=== PATIENT | male | born 1955 | race Caucasian/White ===

== ENCOUNTER 2020-07-09 05:12 | Day surgery (SDC) | payer MEDICARE, MEDICAID ==
[2020-07-09] MEDS ORDERED: Midazolam 1 MG/ML 2 ML SDV IV ONE ×3 (05:13→06:39)
[2020-07-09] MEDS ORDERED: fentaNYL 100 MCG/2 ML SDV IV ONE ×3 (05:13→06:38)
[2020-07-09] MEDS ORDERED: fentaNYL 100 MCG/2 ML SDV ONE (05:16)
[2020-07-09] MEDS ORDERED: Midazolam 1 MG/ML 2 ML SDV ONE (05:16)
[2020-07-09] MEDS ORDERED: Sodium Chloride 0.9% 10 ML Syringe FLUSH PRN (06:00)
[2020-07-09] MEDS ORDERED: Dextrose 5%-0.45% NaCl 1,000 ML IV SCH (06:00)
[2020-07-09 11:26] VITALS: BP 120/79; PULSE 64
--- NOTE | 2020-07-09 11:42 | OR ---
DATE: 07/09/2020 PROCEDURES: Esophagogastroduodenoscopy and multiple pinch biopsies. INSTRUMENT USED: [id number] Olympus video panendoscope. PREMEDICATIONS: No oral or topical anesthesia used. Fentanyl 100 mcg intravenous, Versed 2 mg intravenous, and nasal O2 cannula. The procedure was done under pulse oximetry, BP recording, and engine monitor. INDICATION: The patient with unexplained iron deficiency anemia. Esophagogastroduodenoscopy is performed for detection of any active erosive lesions, Albert esophagus and/or malignancy also under consideration, H pylori status to be determined, small bowel biopsies to be obtained for celiac disease if indicated, endoscopic hemostasis therapy if needed. PROCEDURE IN DETAIL: The scope was passed with ease. Adequate visualization of the esophagus was made from proximal to distal areas. No upper esophageal lesions were identified. No distal esophageal stricture. No uphill or downhill esophageal varices. No Liseth-Asif tear. No evidence of erosive esophagitis by Trinidad criteria. No esophageal polyp or tumor mass identified. Z-line was seen at around 40 cm distal to the oral verge. No proximal gastric varices noted. Gastric fundus examination by retroflexion showed no polypoid lesions. No gastric ulcer, malignant mass, or vascular ectasia identified. Duodenal bulb showed no ulcer. Visualized second part of the duodenum was unremarkable. Multiple pinch biopsies, 4 in number, were taken from different areas of the second part of the duodenum and tissues were also obtained from the duodenal bulb at 9 and 12 o'clock positions and sent for any histopathologic evidence of celiac disease. Multiple pinch biopsies were also taken from the gastric antrum and proximal body and sent for PyloriTek test for H pylori and histopathology. No bleeding was noted from any of the visualized areas at the completion of examination. Photographs were taken of the duodenal bulb, gastric antrum, fundus, and distal esophagus. IMPRESSION: Normal study. The patient tolerated the procedure well. [facility] /[id number]
== END 2020-07-09 08:56 | disposition home or self-care (01) ==
LOC: DL.ENDO 05:12
PROVIDERS: ATTEND Internal Medicine Gastroenterology
DX: D50.9 Iron deficiency anemia, unspecified (principal); F17.210 Nicotine dependence, cigarettes, uncomplicated; I25.10 Atherosclerotic heart disease of native coronary artery without angina pectoris; I48.0 Paroxysmal atrial fibrillation; N40.0 Benign prostatic hyperplasia without lower urinary tract symptoms; E78.00 Pure hypercholesterolemia, unspecified; I10 Essential (primary) hypertension; E03.9 Hypothyroidism, unspecified; Z95.5 Presence of coronary angioplasty implant and graft; Z86.010 Personal history of colon polyps
CPT/HCPCS: 87077; 88305; J2250; J3010; J7042

== ENCOUNTER 2020-07-12 05:28 | Day surgery (SDC) | payer MEDICARE, MEDICAID ==
[2020-07-12] MEDS ORDERED: Midazolam 1 MG/ML 2 ML SDV IV ONE ×7 (05:29→07:23)
[2020-07-12] MEDS ORDERED: fentaNYL 100 MCG/2 ML SDV IV ONE ×3 (05:29→07:11)
[2020-07-12] MEDS ORDERED: Sodium Chloride 0.9% 10 ML Syringe FLUSH PRN (06:00)
[2020-07-12] MEDS ORDERED: Dextrose 5%-0.45% NaCl 1,000 ML IV SCH (06:00)
[2020-07-12] MEDS ORDERED: fentaNYL 100 MCG/2 ML SDV ONE (06:15)
[2020-07-12] MEDS ORDERED: Midazolam 1 MG/ML 2 ML SDV ONE (06:15)
[2020-07-12 10:46] VITALS: BP 136/75; PULSE 70
--- NOTE | 2020-07-12 13:10 | OR ---
DATE: 07/12/2020 PROCEDURES: Total colonoscopy, NBI, and multiple pinch biopsies. INSTRUMENT USED: [id number] Olympus video colonoscope. PREMEDICATIONS: Fentanyl 100 mcg intravenous, Versed 3 mg intravenous, nasal O2 cannula. The procedure was done under pulse oximetry, BP recording, and desk monitor. INDICATION: The patient with iron deficiency anemia. Colonoscopic examination is done for detection of any polypoid lesions and removal, endoscopic hemostasis therapy if needed. DESCRIPTION OF PROCEDURE: Initial rectal exam showed large external hemorrhoidal tags. Rigid anoscopy showed small internal hemorrhoids without bleeding from them. The colonoscope was passed with ease up to the ileocecal area. The colon was found to be tortuous and redundant. Photographs were taken of the normal-appearing cecum identified by landmarks of appendiceal orifice and double-bulged ileocecal folds. No bleeding was noted from any of the visualized areas at the commencement of the examination. The bowel preparation was found to be adequate, Denver scale 2 in all the regions, total score 6. No stricture. No vascular ectasia. No large isolated ulcerations seen. No evidence of diffuse inflammatory bowel disease in the form of friability, contact bleeding, or ulcerations. Probing the proximal sides of folds and flexures using adequate distention and clearing up the stool material, withdrawal of the scope was made. In the proximal descending colon, more than 1 cm sized sessile polyp was noted, NBI views were obtained, photographs were taken, couple of superficial biopsies were taken and sent for histopathology. No bleeding was noted from any of the visualized areas at the completion of examination. IMPRESSION: 1. External and internal hemorrhoids. 2. Colonic polyp. The patient tolerated the procedure well. [facility] /[id number]
== END 2020-07-12 10:10 | disposition home or self-care (01) ==
LOC: DL.ENDO 05:28
PROVIDERS: ATTEND Internal Medicine Gastroenterology
DX: D12.4 Benign neoplasm of descending colon (principal); D50.9 Iron deficiency anemia, unspecified; K64.8 Other hemorrhoids; K64.4 Residual hemorrhoidal skin tags; I25.10 Atherosclerotic heart disease of native coronary artery without angina pectoris; Z95.5 Presence of coronary angioplasty implant and graft; E78.00 Pure hypercholesterolemia, unspecified; I10 Essential (primary) hypertension; E03.9 Hypothyroidism, unspecified; F17.210 Nicotine dependence, cigarettes, uncomplicated
CPT/HCPCS: 88305; J2250; J3010; J7042

== ENCOUNTER 2021-02-12 07:37 | Observation (INO) | payer MEDICARE, MEDICAID ==
[2021-02-12] MEDS ORDERED: Diltiazem 25 MG/5 ML SDV IVPUSH ONE (07:55)
--- NOTE | 2021-02-12 08:07 | EDM.PDOC ---
ED HPI GENERAL MEDICAL PROBLEM - General Stated Complaint: HISTORY OF HEART ISSUES / SAYS WEIRD HEARTBEAT Time Seen by Provider: 02/12/21 07:55 Source of Information: Reports: Patient History Limitations: Reports: No Limitations - History of Present Illness INITIAL COMMENTS - FREE TEXT/NARRATIVE: This 65 yo male patient reports to the ED due to feeling irregular heartbeats. The patient reports he has has similar episodes in the past couple of weeks, but today his symptoms have not gone away. The patient reports he took his medications this morning at about 0500. The patient also noticed an elevated heart rate on his home pulse oximeter. The patient has a history of A. Fib, cardiac stents, CAD and left ventricular dysfunction. The patient denies any chest pain or shortness of breath at this time. Onset: Today Duration: Hour(s):, Constant Location: Reports: Chest Quality: Reports: Other Severity: Moderate Improves with: Reports: None Worsens with: Reports: None Context: Reports: Other Associated Symptoms: Reports: Other (Heart palpitations) - Related Data Allergies Allergy/AdvReac Type Severity Reaction Status Date / Time No Known Allergies Allergy Verified 07/12/20 05:46 Home Meds: Home Meds Aspirin [Adult Low Dose Aspirin EC] 81 mg PO DAILY 08/29/14 [History] Docusate Sodium [Colace] 100 mg PO ASDIRECTED 08/29/14 [History] Levothyroxine [Synthroid] 50 mcg PO DAILY 08/29/14 [History] Metoprolol Succinate [Toprol XL] 25 mg PO DAILY 08/29/14 [History] Multivitamin [Multivitamins] 1 tab PO DAILY 08/29/14 [History] Omeprazole 20 mg PO DAILY 08/29/14 [History] Tamsulosin [Flomax] 0.4 mg PO DAILY 08/29/14 [History] atorvaSTATin [Lipitor] 80 mg PO DAILY 08/29/14 [History] QUEtiapine [SEROquel XR] 800 mg PO BEDTIME 01/11/15 [History] ARIPiprazole [Abilify] 5 mg PO DAILY 06/21/20 [History] Rivaroxaban [Xarelto] 20 mg PO DAILY 06/21/20 [History] Zolpidem [Ambien] 5 mg PO BEDTIME 06/21/20 [History] traZODone HCl [Trazodone HCl] 100 mg PO BEDTIME 06/21/20 [History] Ferrous Fumarate [Ferrocite] 324 mg PO ASDIRECTED 02/12/21 [History] Isosorbide Mononitrate [Imdur] 30 mg PO DAILY 02/12/21 [History] Melatonin 10 mg PO ASDIRECTED 02/12/21 [History] Past Medical History HEENT History: Reports: Hard of Hearing, Impaired Vision Other HEENT History: dental infection, wears glasses. states hard of hearing Cardiovascular History: Reports: Afib, CAD, Cardiomyopathy, High Cholesterol, Hypertension, NM, Stents Other Cardiovascular History: left ventricular dysfunction Respiratory History: Reports: COPD Gastrointestinal History: Reports: Colon Polyp, GERD, Other (See Below) Other Gastrointestinal History: colonic polyp HYPERPLASTIC Genitourinary History: Reports: BPH, Prostate Disorder Musculoskeletal History: Reports: None Neurological History: Reports: Concussion, Other (See Below) Other Neuro History: cervical lymphadenopathy. schizophrenia Psychiatric History: Reports: Bipolar, Mood Swings, Psychosis, Schizophrenia Endocrine/Metabolic History: Reports: Hypothyroidism Hematologic History: Reports: Anemia, Iron Deficiency Immunologic History: Reports: None Oncologic (Cancer) History: Reports: None Dermatologic History: Reports: None - Infectious Disease History Infectious Disease History: Reports: Chicken Pox, Measles - Past Surgical History Head Surgeries/Procedures: Reports: None HEENT Surgical History: Reports: None Cardiovascular Surgical History: Reports: Carotid Stents, Coronary Artery Stent Respiratory Surgical History: Reports: None GI Surgical History: Reports: Colonoscopy, EGD, Polypectomy Male Surgical History: Reports: None Neurological Surgical History: Reports: None Musculoskeletal Surgical History: Reports: None Social & Family History - Family History Family Medical History: Unobtainable - Caffeine Use Caffeine Use: Reports: Coffee Caffeine Use Comment: 12 CUPS DAILY - Living Situation & Occupation Living situation: Reports: Single Occupation: Disabled ED ROS GENERAL - Review of Systems Review Of Systems: Comprehensive ROS is negative, except as noted in HPI. ED EXAM, GENERAL - Physical Exam Exam: See Below Exam Limited By: No Limitations General Appearance: Alert, WD/WN, Mild Distress Eye Exam: Bilateral Eye: EOMI, Normal Inspection, PERRL Ears: Normal External Exam, Normal Canal, Hearing Grossly Normal, Normal TMs Nose: Normal Inspection, Normal Mucosa, No Blood Throat/Mouth: Normal Inspection Head: Atraumatic, Normocephalic Neck: Normal Inspection, Supple, Non-Tender, Full Range of Motion Respiratory/Chest: Decreased Breath Sounds, Crackles (diffuse) Cardiovascular: No Edema, No Gallop, No JVD, No Murmur, No Rub, Tachycardia, Irregularly Irregular GI/Abdominal: Normal Bowel Sounds, Soft, Non-Tender, No Organomegaly, No Distention, No Abnormal Bruit, No Mass (Male) Exam: Deferred Rectal (Males) Exam: Deferred Back Exam: Normal Inspection, Full Range of Motion, NT Extremities: Normal Inspection, Normal Range of Motion, Non-Tender, Normal Capillary Refill, No Pedal Edema Neurological: Alert, Oriented, CN II-XII Intact, Normal Cognition, Normal Gait, Normal Reflexes, No Motor/Sensory Deficits Psychiatric: Normal Affect, Normal Mood Skin Exam: Warm, Dry, Intact, Normal Color, No Rash Lymphatic: No Adenopathy #1 Interpretation EKG Date: 02/12/21 Time: 07:48 Rhythm: A-Fib Rate (Beats/Min): 123 [place]ides: Normal P-Wave: Absent QRS: Wide Comparison: No Change Course - Vital Signs Last Recorded V/S: Last Vital Signs Temp 98.1 F 02/12/21 07:56 Pulse 138 H 02/12/21 07:56 Resp 18 02/12/21 07:56 BP 136/103 H 02/12/21 07:56 Pulse Ox 100 02/12/21 07:56 Orthostatic Blood Pressure [ 116/78 Standing] Orthostatic Blood Pressure [ 117/81 Sitting] Orthostatic Blood Pressure [ 110/72 Supine] - Orders/Labs/Meds Orders: Active Orders 24 hr Category Date Time Status CORONAVIRUS COVID-19 RAFAEL [MOLEC] Stat Lab 02/12/21 10:32 Received CULTURE BLOOD [BC] Stat Lab 02/12/21 07:45 Ordered Metoprolol Tartrate [Lopressor] Med 02/12/21 10:36 Once 25 mg PO ONETIME ONE Labs: Laboratory Tests 02/12/21 02/12/21 02/12/21 Range/Units 07:55 07:55 07:55 WBC 5.7 (5.0-10.0) 10^3/uL RBC 3.90 L (4.6-6.2) 10^6/uL Hgb 12.4 L D (14.0-18.0) g/dL Hct 38.4 L (40.0-54.0) % MCV 98.5 D (80-100) fL MCH 31.8 (27.0-34.0) pg MCHC 32.3 L (33.0-35.0) g/dL Plt Count 201 (150-450) 10^3/uL Neut % (Auto) 75.4 H (42.2-75.2) % Lymph % (Auto) 15.6 L (20.5-50.1) % Stanton % (Auto) 8.1 H (2-8) % Eos % (Auto) 0.5 L (1.0-3.0) % Baso % (Auto) 0.4 (0.0-1.0) % Sodium 136 (136-145) mmol/L Potassium 4.1 (3.5-5.1) mmol/L Chloride 99 (98-107) mmol/L Carbon Dioxide 28 (21-32) mmol/L Anion Gap 13.1 H (7-13) mEq/L BUN 5 L (7-18) mg/dL Creatinine 0.97 (0.70-1.30) mg/dL Est Cr Clr Drug Dosing 71.49 mL/min Estimated GFR (MDRD) > 60 BUN/Creatinine Ratio 5.2 (No establ ref range) Glucose 176 H (70-99) mg/dL Lactic Acid 2.0 (0.4-2.0) mmol/L Calcium 8.4 L (8.5-10.1) mg/dL Total Bilirubin 0.2 (0.2-1.0) mg/dL AST 14 L (15-37) U/L ALT 43 (16-63) U/L Alkaline Phosphatase 80 (46-116) U/L Troponin I High Sens 13 (<=76) pg/mL Total Protein 5.8 L (6.4-8.2) g/dL Albumin 3.1 L (3.4-5.0) g/dL Globulin 2.7 Albumin/Globulin Ratio 1.15 Urine Color (YELLOW) Urine Appearance (CLEAR) Urine pH (5.0-9.0) Ur Specific [place] (1.005-1.030) Urine Protein (NEGATIVE) Urine Glucose (UA) (NEGATIVE) Urine Ketones (NEGATIVE) Urine Occult Blood (NEGATIVE) Urine Nitrite (NEGATIVE) Urine Bilirubin (NEGATIVE) Urine Urobilinogen (0.2-1.0) mg/dL Ur Leukocyte Esterase (NEGATIVE) 02/12/21 Range/Units 08:47 WBC (5.0-10.0) 10^3/uL RBC (4.6-6.2) 10^6/uL Hgb (14.0-18.0) g/dL Hct (40.0-54.0) % MCV (80-100) fL MCH (27.0-34.0) pg MCHC (33.0-35.0) g/dL Plt Count (150-450) 10^3/uL Neut % (Auto) (42.2-75.2) % Lymph % (Auto) (20.5-50.1) % Stanton % (Auto) (2-8) % Eos % (Auto) (1.0-3.0) % Baso % (Auto) (0.0-1.0) % Sodium (136-145) mmol/L Potassium (3.5-5.1) mmol/L Chloride (98-107) mmol/L Carbon Dioxide (21-32) mmol/L Anion Gap (7-13) mEq/L BUN (7-18) mg/dL Creatinine (0.70-1.30) mg/dL Est Cr Clr Drug Dosing mL/min Estimated GFR (MDRD) BUN/Creatinine Ratio (No establ ref range) Glucose (70-99) mg/dL Lactic Acid (0.4-2.0) mmol/L Calcium (8.5-10.1) mg/dL Total Bilirubin (0.2-1.0) mg/dL AST (15-37) U/L ALT (16-63) U/L Alkaline Phosphatase (46-116) U/L Troponin I High Sens (<=76) pg/mL Total Protein (6.4-8.2) g/dL Albumin (3.4-5.0) g/dL Globulin Albumin/Globulin Ratio Urine Color Yellow (YELLOW) Urine Appearance Clear (CLEAR) Urine pH 7.5 (5.0-9.0) Ur Specific [place] 1.020 (1.005-1.030) Urine Protein Negative (NEGATIVE) Urine Glucose (UA) Negative (NEGATIVE) Urine Ketones Negative (NEGATIVE) Urine Occult Blood Negative (NEGATIVE) Urine Nitrite Negative (NEGATIVE) Urine Bilirubin Negative (NEGATIVE) Urine Urobilinogen 0.2 (0.2-1.0) mg/dL Ur Leukocyte Esterase Negative (NEGATIVE) Meds: Medications Discontinued Medications Generic Name Dose Route Start Last Admin Trade Name Freq PRN Reason Stop Dose Admin Diltiazem HCl 20 mg 02/12/21 07:55 02/12/21 08:01 Diltiazem 25 Mg/5 Ml Sdv IVPUSH 02/12/21 07:56 20 mg ONETIME ONE Administration Departure - Departure Time of Disposition: 10:39 Disposition: Home, Self-Care 01 Condition: Fair Clinical Impression: Palpitations, Atrial fibrillation with RVR Care Plan Goals: Discussed the patient's history, examination and treatments with Dr. Moreno. Dr. Moreno accepted the patient for continued evaluation and further management as an observation patient at [facility]. Sepsis Event Note (ED) - Evaluation Sepsis Screening Result: No Definite Risk - Focused Exam Vital Signs: Vital Signs Temp Pulse Resp BP Pulse Ox 02/12/21 07:56 98.1 F 138 H 18 136/103 H 100 - My Orders Last 24 Hours: My Active Orders 02/12/21 07:45 CULTURE BLOOD [BC] Stat 02/12/21 10:32 CORONAVIRUS COVID-19 RAFAEL [MOLEC] Stat 02/12/21 10:36 Metoprolol Tartrate [Lopressor] 25 mg PO ONETIME ONE - Assessment/Plan Last 24 Hours: My Active Orders 02/12/21 07:45 CULTURE BLOOD [BC] Stat 02/12/21 10:32 CORONAVIRUS COVID-19 RAFAEL [MOLEC] Stat 02/12/21 10:36 Metoprolol Tartrate [Lopressor] 25 mg PO ONETIME ONE
[2021-02-12 08:25] LABS: ANION GAP 13.1 mEq/L (7-13); CHLORIDE,CL 99 mmol/L (98-107); SODIUM,NA 136 mmol/L (136-145)
--- NOTE | 2021-02-12 10:32 | CR ---
PROCEDURE INFORMATION: Exam: XR Chest Exam date and time: 02/12/2021 8:15 AM Age: 65 years old Clinical indication: Other: Palpitations TECHNIQUE: Imaging protocol: XR of the chest. Views: 1 view. COMPARISON: CR Chest 1V Frontal 01/29/2018 10:19 AM FINDINGS: Lungs: Unremarkable. No consolidation. Pleural spaces: Unremarkable. No pleural effusion. No pneumothorax. Heart/Mediastinum: Unremarkable. No cardiomegaly. Bones/joints: Unremarkable. IMPRESSION: No acute findings.
[2021-02-12] MEDS ORDERED: Metoprolol Tartrate 25 MG Tab PO ONE (10:36)
[2021-02-12] MEDS ORDERED: Ondansetron 4 MG Tab.DIS PO PRN (11:35)
[2021-02-12] MEDS ORDERED: Docusate Sodium 100 MG Cap PO PRN (11:35)
[2021-02-12] MEDS ORDERED: oxyCODONE 5 MG Tab PO PRN (11:35)
[2021-02-12] MEDS ORDERED: Acetaminophen 325 MG Tab PO PRN (11:35)
[2021-02-12] MEDS ORDERED: Temazepam 15 MG Cap PO PRN (11:35)
--- NOTE | 2021-02-12 12:10 | PCM.HP ---
H&P History of Present Illness - General Date of Service: 02/12/21 Admit Problem/Dx: Admission Diagnosis/Problem Admission Diagnosis/Problem Atrial fibrillation with rapid ventricular response Source of Information: Patient, Provider - History of Present Illness Initial Comments - Free Text/Narative: 65 yo with h/o hypothyroidism, cad, Afib has been on metoprolol, xarelto developed palpitation on 02/12 AM no associated loc, no cp checked his oxymeter, it showed hr 120-130s, sat 95% came to ER noted to have rapid afib with hr 120-140s given cardizem iv 20 mg hr improved to 90s but with little activity HR returned to 120s no cough, no new meds, no fever, no pain - Related Data Allergies/Adverse Reactions: Allergies Allergy/AdvReac Type Severity Reaction Status Date / Time No Known Allergies Allergy Verified 02/12/21 11:23 Home Medications: Home Meds Aspirin [Adult Low Dose Aspirin EC] 81 mg PO DAILY 08/29/14 [History] Docusate Sodium [Colace] 200 mg PO ASDIRECTED 08/29/14 [History] Levothyroxine [Synthroid] 50 mcg PO DAILY 08/29/14 [History] Metoprolol Succinate [Toprol XL] 50 mg PO DAILY 08/29/14 [History] Multivitamin [Multivitamins] 1 tab PO DAILY 08/29/14 [History] Omeprazole 20 mg PO DAILY 08/29/14 [History] Tamsulosin [Flomax] 0.4 mg PO DAILY 08/29/14 [History] atorvaSTATin [Lipitor] 80 mg PO DAILY 08/29/14 [History] QUEtiapine [SEROquel XR] 800 mg PO BEDTIME 01/11/15 [History] ARIPiprazole [Abilify] 5 mg PO DAILY 06/21/20 [History] Rivaroxaban [Xarelto] 20 mg PO DAILY 06/21/20 [History] Zolpidem [Ambien] 5 mg PO BEDTIME 06/21/20 [History] traZODone HCl [Trazodone HCl] 100 mg PO BEDTIME 06/21/20 [History] Ferrous Fumarate [Ferrocite] 106 mg PO ASDIRECTED 02/12/21 [History] Isosorbide Mononitrate [Imdur] 30 mg PO DAILY 02/12/21 [History] Melatonin 10 mg PO ASDIRECTED 02/12/21 [History] Past Medical History HEENT History: Reports: Hard of Hearing, Impaired Vision Other HEENT History: dental infection, wears glasses. states hard of hearing Cardiovascular History: Reports: Afib, CAD, Cardiomyopathy, High Cholesterol, Hypertension, OR, Stents Other Cardiovascular History: left ventricular dysfunction Respiratory History: Reports: COPD Gastrointestinal History: Reports: Colon Polyp, GERD, Other (See Below) Other Gastrointestinal History: colonic polyp HYPERPLASTIC Genitourinary History: Reports: BPH, Prostate Disorder Musculoskeletal History: Reports: None Neurological History: Reports: Concussion, Other (See Below) Other Neuro History: cervical lymphadenopathy. schizophrenia Psychiatric History: Reports: Bipolar, Mood Swings, Psychosis, Schizophrenia Endocrine/Metabolic History: Reports: Hypothyroidism, Obesity/BMI 30+ Hematologic History: Reports: Anemia, Iron Deficiency Immunologic History: Reports: None Oncologic (Cancer) History: Reports: None Dermatologic History: Reports: None - Infectious Disease History Infectious Disease History: Reports: Chicken Pox, Measles - Past Surgical History Head Surgeries/Procedures: Reports: None HEENT Surgical History: Reports: None Cardiovascular Surgical History: Reports: Carotid Stents, Coronary Artery Stent Respiratory Surgical History: Reports: None GI Surgical History: Reports: Colonoscopy, EGD, Polypectomy Male Surgical History: Reports: None Neurological Surgical History: Reports: None Musculoskeletal Surgical History: Reports: None Social & Family History - Family History Family Medical History: Unobtainable - Tobacco Use Tobacco Use Status *Q: Current Every Day Tobacco User Years of Tobacco use: 55 Packs/Tins Daily: 1 - Caffeine Use Caffeine Use: Reports: Coffee Caffeine Use Comment: 12 CUPS DAILY - Recreational Drug Use Recreational Drug Use: No - Living Situation & Occupation Living situation: Reports: Single Occupation: Disabled H&P Review of Systems - Review of Systems: Review Of Systems: See Below General: Reports: Chills. Denies: Fever, Malaise Pulmonary: Denies: Shortness of Breath Cardiovascular: Reports: Palpitations, Edema Gastrointestinal: Denies: Abdominal Pain Neurological: Denies: Confusion Exam - Exam Exam: See Below - Vital Signs Vital Signs: Last Vital Signs Temp 99.4 F 02/12/21 11:35 Pulse 98 02/12/21 11:35 Resp 20 02/12/21 11:35 BP 119/72 02/12/21 11:35 Pulse Ox 96 02/12/21 11:35 Orthostatic Blood Pressure [ 116/78 Standing] Orthostatic Blood Pressure [ 117/81 Sitting] Orthostatic Blood Pressure [ 110/72 Supine] Weight: 195 lb 6.4 oz - Exam Quality Assessment: No: Supplemental Oxygen General: Alert, Oriented Neck: Supple, Trachea Midline Lungs: Clear to Auscultation, Normal Respiratory Effort Cardiovascular: Irregular Rhythm GI/Abdominal Exam: Normal Bowel Sounds, Soft, Non-Tender Extremities: No Pedal Edema Skin: Warm, Dry Neurological: Cranial Nerves Intact Neuro Extensive - Mental Status: Alert, Oriented x3, Normal Mood/Affect - Patient Data Lab Results Last 24 hrs: Laboratory Results - last 24 hr 02/12/21 02/12/21 02/12/21 Range/Units 07:55 07:55 07:55 WBC 5.7 (5.0-10.0) 10^3/uL RBC 3.90 L (4.6-6.2) 10^6/uL Hgb 12.4 L D (14.0-18.0) g/dL Hct 38.4 L (40.0-54.0) % MCV 98.5 D (80-100) fL MCH 31.8 (27.0-34.0) pg MCHC 32.3 L (33.0-35.0) g/dL Plt Count 201 (150-450) 10^3/uL Neut % (Auto) 75.4 H (42.2-75.2) % Lymph % (Auto) 15.6 L (20.5-50.1) % [place] % (Auto) 8.1 H (2-8) % Eos % (Auto) 0.5 L (1.0-3.0) % Baso % (Auto) 0.4 (0.0-1.0) % Sodium 136 (136-145) mmol/L Potassium 4.1 (3.5-5.1) mmol/L Chloride 99 (98-107) mmol/L Carbon Dioxide 28 (21-32) mmol/L Anion Gap 13.1 H (7-13) mEq/L BUN 5 L (7-18) mg/dL Creatinine 0.97 (0.70-1.30) mg/dL Est Cr Clr Drug Dosing 71.49 mL/min Estimated GFR (MDRD) > 60 BUN/Creatinine Ratio 5.2 (No establ ref range) Glucose 176 H (70-99) mg/dL Lactic Acid 2.0 (0.4-2.0) mmol/L Calcium 8.4 L (8.5-10.1) mg/dL Total Bilirubin 0.2 (0.2-1.0) mg/dL AST 14 L (15-37) U/L ALT 43 (16-63) U/L Alkaline Phosphatase 80 (46-116) U/L Troponin I High Sens 13 (<=76) pg/mL Total Protein 5.8 L (6.4-8.2) g/dL Albumin 3.1 L (3.4-5.0) g/dL Globulin 2.7 Albumin/Globulin Ratio 1.15 Urine Color (YELLOW) Urine Appearance (CLEAR) Urine pH (5.0-9.0) Ur Specific [place] (1.005-1.030) Urine Protein (NEGATIVE) Urine Glucose (UA) (NEGATIVE) Urine Ketones (NEGATIVE) Urine Occult Blood (NEGATIVE) Urine Nitrite (NEGATIVE) Urine Bilirubin (NEGATIVE) Urine Urobilinogen (0.2-1.0) mg/dL Ur Leukocyte Esterase (NEGATIVE) SARS CoV-2 RNA Rapid RAFAEL (NEGATIVE) 02/12/21 02/12/21 Range/Units 08:47 10:32 WBC (5.0-10.0) 10^3/uL RBC (4.6-6.2) 10^6/uL Hgb (14.0-18.0) g/dL Hct (40.0-54.0) % MCV (80-100) fL MCH (27.0-34.0) pg MCHC (33.0-35.0) g/dL Plt Count (150-450) 10^3/uL Neut % (Auto) (42.2-75.2) % Lymph % (Auto) (20.5-50.1) % [place] % (Auto) (2-8) % Eos % (Auto) (1.0-3.0) % Baso % (Auto) (0.0-1.0) % Sodium (136-145) mmol/L Potassium (3.5-5.1) mmol/L Chloride (98-107) mmol/L Carbon Dioxide (21-32) mmol/L Anion Gap (7-13) mEq/L BUN (7-18) mg/dL Creatinine (0.70-1.30) mg/dL Est Cr Clr Drug Dosing mL/min Estimated GFR (MDRD) BUN/Creatinine Ratio (No establ ref range) Glucose (70-99) mg/dL Lactic Acid (0.4-2.0) mmol/L Calcium (8.5-10.1) mg/dL Total Bilirubin (0.2-1.0) mg/dL AST (15-37) U/L ALT (16-63) U/L Alkaline Phosphatase (46-116) U/L Troponin I High Sens (<=76) pg/mL Total Protein (6.4-8.2) g/dL Albumin (3.4-5.0) g/dL Globulin Albumin/Globulin Ratio Urine Color Yellow (YELLOW) Urine Appearance Clear (CLEAR) Urine pH 7.5 (5.0-9.0) Ur Specific [place] 1.020 (1.005-1.030) Urine Protein Negative (NEGATIVE) Urine Glucose (UA) Negative (NEGATIVE) Urine Ketones Negative (NEGATIVE) Urine Occult Blood Negative (NEGATIVE) Urine Nitrite Negative (NEGATIVE) Urine Bilirubin Negative (NEGATIVE) Urine Urobilinogen 0.2 (0.2-1.0) mg/dL Ur Leukocyte Esterase Negative (NEGATIVE) SARS CoV-2 RNA Rapid RAFAEL Negative (NEGATIVE) Result Diagrams: 02/12/21 07:55 02/12/21 07:55 *Q Meaningful Use (ADM) - VTE *Q VTE Anticoagulation Contraindications: Alternative TX Request PT - Problem List (1) Atrial fibrillation with RVR SNOMED Code(s): 077465208071246 ICD Code: I48.91 - UNSPECIFIED ATRIAL FIBRILLATION Status: Acute Current Visit: No (2) CAD (coronary artery disease) SNOMED Code(s): 82354574 ICD Code: I25.10 - ATHSCL HEART DISEASE OF [place] CORONARY ARTERY W/O ANG PCT RS Status: Acute Current Visit: No Onset Date: 01/11/15 (3) Palpitations SNOMED Code(s): 95807353 ICD Code: R00.2 - PALPITATIONS Status: Acute Current Visit: No Problem List Initiated/Reviewed/Updated: Yes Orders Last 24hrs: Active Orders 24 hr Category Date Time Status Admission Diagnosis [ADT] Urgent ADT 02/12/21 10:37 Ordered Admission Status [Patient Status] [ADT] Routine ADT 02/12/21 10:37 Active Oxygen Therapy [RC] .PRN Care 02/12/21 11:35 Active Peripheral IV Care [RC] . DIRECTED Care 02/12/21 11:36 Active Telemetry Monitoring [Cardiac Monitoring] [RC] . Care 02/12/21 11:34 Active DIRECTED Up With Assistance [RC] ASDIRECTED Care 02/12/21 11:35 Active VTE/DVT Education [RC] PER UNIT ROUTINE Care 02/12/21 11:35 Active Vital Signs [RC] Q4H Care 02/12/21 11:35 Active General [Regular Diet] [DIET] Diet 02/12/21 Lunch Active BASIC METABOLIC PANEL,BMP [CHEM] AM Lab 02/13/21 05:15 Ordered CBC WITH AUTO DIFF [HEME] AM Lab 02/13/21 05:15 Ordered CULTURE BLOOD [BC] Stat Lab 02/12/21 07:55 Received TSH ULTRASENSITIVE [CHEM] AM Lab 02/13/21 05:11 Ordered ARIPiprazole [Abilify] Med 02/13/21 09:00 Ordered 5 mg PO DAILY Acetaminophen [TylenoL] Med 02/12/21 11:35 Active 650 mg PO Q4H PRN Aspirin [Halfprin] Med 02/13/21 09:00 Ordered 81 mg PO DAILY Docusate Sodium [Colace] Med 02/12/21 11:35 Ordered 100 mg PO BID PRN Isosorbide Mononitrate [Imdur] Med 02/13/21 09:00 Ordered 30 mg PO DAILY Levothyroxine [Synthroid] Med 02/13/21 09:00 Ordered 50 mcg PO DAILY Metoprolol Succinate [Toprol XL] Med 02/13/21 09:00 Ordered 50 mg PO DAILY Multivitamin [Multivitamins] Med 02/13/21 09:00 Ordered 1 tab PO DAILY Omeprazole Med 02/13/21 09:00 Ordered 20 mg PO DAILY Ondansetron [Zofran ODT] Med 02/12/21 11:35 Ordered 4 mg PO Q6H PRN QUEtiapine [SEROquel XR] Med 02/12/21 21:00 Ordered 800 mg PO BEDTIME Rivaroxaban [Xarelto] Med 02/13/21 09:00 Ordered 20 mg PO DAILY Sodium Chloride 0.9% [Saline Flush] Med 02/12/21 21:00 Active 10 ml FLUSH 0900,2100 Tamsulosin [Flomax] Med 02/13/21 09:00 Ordered 0.4 mg PO DAILY Temazepam [Restoril] Med 02/12/21 11:35 Ordered 15 mg PO BEDTIME PRN Zolpidem [Ambien] Med 02/12/21 21:00 Ordered 5 mg PO BEDTIME atorvaSTATin [Lipitor] Med 02/13/21 09:00 Ordered 80 mg PO DAILY oxyCODONE Med 02/12/21 11:35 Ordered 5 mg PO Q4H PRN traZODone HCl Med 02/12/21 21:00 Ordered 100 mg PO BEDTIME Anticoagulation Contraindications VTE [AST] Per Unit Oth 02/12/21 11:35 Ord ered Routine Peripheral IV Insertion Adult [OM.PC] Routine Oth 02/12/21 11:35 Ordered Saline Lock Insert [OM.PC] Routine Oth 02/12/21 11:35 Ordered Resuscitation Status Routine Resus Stat 02/12/21 11:35 Ordered Medication Orders Acetaminophen (Acetaminophen 325 Mg Tab) 650 mg PO Q4H PRN PRN Reason: Pain (Mild 1-3)/fever Aspirin (Aspirin 81 Mg Tab.Ec) 81 mg PO DAILY [facility] Docusate Sodium (Docusate Sodium 100 Mg Cap) 100 mg PO BID PRN PRN Reason: Constipation Isosorbide Mononitrate (Isosorbide Mononitrate 30 Mg Tab.Er) 30 mg PO DAILY [facility] Levothyroxine Sodium (Levothyroxine 50 Mcg Tab) 50 mcg PO DAILY [facility] Metoprolol Succinate (Metoprolol Succinate 25 Mg Tab.Er) 50 mg PO DAILY [facility] Non-Formulary Medication (Aripiprazole [Abilify]) 5 mg PO DAILY [facility] Non-Formulary Medication (Atorvastatin [Lipitor]) 80 mg PO DAILY [facility] Non-Formulary Medication (Multivitamin [Multivitamins]) 1 tab PO DAILY [facility] Non-Formulary Medication (Quetiapine [Seroquel Xr]) 800 mg PO BEDTIME [facility] Non-Formulary Medication (Rivaroxaban [Xarelto]) 20 mg PO DAILY [facility] Non-Formulary Medication (Trazodone Hcl) 100 mg PO BEDTIME [facility] Omeprazole (Omeprazole 20 Mg Cap.Cr) 20 mg PO DAILY [facility] Ondansetron HCl (Ondansetron 4 Mg Tab.Dis) 4 mg PO Q6H PRN PRN Reason: nausea, able to take PO Oxycodone HCl (Oxycodone 5 Mg Tab) 5 mg PO Q4H PRN PRN Reason: Pain (moderate 4-6) Sodium Chloride (Sodium Chloride 0.9% 10 Ml Syringe) 10 ml FLUSH 0900,2100 [facility] Tamsulosin HCl (Tamsulosin 0.4 Mg Cap.Er) 0.4 mg PO DAILY [facility] Temazepam (Temazepam 15 Mg Cap) 15 mg PO BEDTIME PRN PRN Reason: Sleep Zolpidem Tartrate (Zolpidem 5 Mg Tab) 5 mg PO BEDTIME [facility] Assessment/Plan Comment:: h/o cad, afib, hypothyroidism, mood disorder presented with palpitation, noted to have rapid afib rapid afib with h/o chronic afib normally on toprol xl 50 mg daily given cardizem 20 mg IV in er HR improved but still tachy with activity will monitor on tele, check tsh will add extram toprol xl now increase daily dose to 75 mg daily cont xarelto cad cont statin, asa, metoprolol hypothyroidism treat with synthroid
[2021-02-12] MEDS ORDERED: Rivaroxaban 10 MG Tab PO SCH (18:00)
[2021-02-12] MEDS ORDERED: traZODone 50 MG Tab PO SCH (21:00)
[2021-02-12] MEDS ORDERED: QUEtiapine 100 MG Tab PO SCH (21:00)
[2021-02-12] MEDS ORDERED: Zolpidem 5 MG Tab PO SCH (21:00)
[2021-02-12] MEDS ORDERED: Non-Formulary Medication 1 Each (Quetiapine Fumarate [Quetiapine Fumarate] 400 MG Tablet) PO SCH (21:00)
[2021-02-12] MEDS: Sodium Chloride 0.9% 10 ML Syringe FLUSH SCH (21:16)
[2021-02-13] MEDS ORDERED: Levothyroxine 50 MCG Tab PO SCH (06:00)
[2021-02-13] MEDS ORDERED: Isosorbide Mononitrate 30 MG Tab.ER PO SCH (06:00)
[2021-02-13] MEDS ORDERED: Omeprazole 20 MG Cap.CR PO SCH (06:00)
[2021-02-13 06:21] LABS: CHLORIDE,CL 105 mmol/L (98-107); SODIUM,NA 141 mmol/L (136-145)
[2021-02-13 08:13] VITALS: BP 99/74; PULSE 74
[2021-02-13] MEDS ORDERED: Aspirin 81 MG Tab.EC PO SCH (09:00)
[2021-02-13] MEDS ORDERED: Tamsulosin 0.4 MG Cap.ER PO SCH (09:00)
[2021-02-13] MEDS ORDERED: Non-Formulary Medication 1 Each (Aripiprazole [Abilify] 5 MG Tablet) PO SCH (09:00)
[2021-02-13] MEDS ORDERED: Multivitamin Tab PO SCH (09:00)
[2021-02-13] MEDS ORDERED: Metoprolol Succinate 50 MG Tab.ER PO SCH (09:00)
[2021-02-13] MEDS ORDERED: atorvaSTATin 20 MG Tab PO SCH (09:00)
[2021-02-13] MEDS: Sodium Chloride 0.9% 10 ML Syringe FLUSH SCH (09:15)
[2021-02-13] MEDS ORDERED: Pneumococcal Polyvalent-23 Vaccine 0.5 ML SDV IM ONE (12:42)
--- NOTE | 2021-02-14 01:20 | DISCH ---
The patient is 65 years old man who was admitted in the hospital with diagnosis of atrial fibrillation with rapid ventricular rate. He has history of hypothyroidism, coronary artery disease, atrial fibrillation and is on metoprolol 50 mg extended release daily and Xarelto 20 mg p.o. daily. The patient was given diltiazem IV 20 mg and heart rate improved to 90s, but with little activity heart rate returned to 120. The patient has no cough. Did not receive any new medication. No fever. No pain. The patient was increased on metoprolol to 75 mg p.o. daily and his heart rate improved and was stable. The patient was seen today and he is stable for discharge. DIAGNOSES AT DISCHARGE: Atrial fibrillation with rapid ventricular response, coronary artery disease, hypothyroidism, BPH, schizophrenia, anemia. DIAGNOSES AT ADMISSION: Atrial fibrillation with rapid ventricular response, hypothyroidism, schizophrenia, anemia, hyperlipidemia. PHYSICAL EXAMINATION: HEENT: Today, head is atraumatic, normocephalic. Pupils equally reactive to light. Neck: Supple. No thyromegaly. No lymphadenopathy. Heart: S1, S2. Regular rhythm and rate. No murmur. Lungs: Clear to auscultation. Abdomen: Soft, nontender. Positive bowel sounds. Extremities: No edema. Vital Signs: On 02/13/2021, temperature 98.1, heart rate 74, blood pressure 127/73. another measurement of the blood pressure. Respiratory rate 20, oxygen saturation 95% at room air. LABORATORY DATA: On 02/13/2021, WBC 5.2, hemoglobin 11.8, hematocrit 36.9, platelet count 203, monocytes 10.3. Sodium 121, potassium 4, chloride 105, carbon dioxide 29, BUN 8, creatinine 0.77. Estimated creatinine clearance 90, glucose 85, lactic acid 2, calcium 8.6, AST 14, ALT 43, alkaline phosphatase 80, troponin 13, total protein 5.8, albumin 3.1, globulin 2.7, TSH 0.55. At admission, SARS COVID was negative. Chest x-ray at admission, no acute findings. The patient was in telemetry with no other acute events. [facility] /[id number]
== END 2021-02-13 13:25 | disposition home or self-care (01) ==
LOC: DL.ED 07:37 → DL.MS 11:01
PROVIDERS: ADMIT Internal Medicine; ATTEND Internal Medicine
DX: I48.91 Unspecified atrial fibrillation (principal); E03.9 Hypothyroidism, unspecified; I25.10 Atherosclerotic heart disease of native coronary artery without angina pectoris; E78.00 Pure hypercholesterolemia, unspecified; I10 Essential (primary) hypertension; I25.2 Old myocardial infarction; J44.9 Chronic obstructive pulmonary disease, unspecified; K21.9 Gastro-esophageal reflux disease without esophagitis; E66.9 Obesity, unspecified; F17.210 Nicotine dependence, cigarettes, uncomplicated; Z79.899 Other long term (current) drug therapy; Z79.01 Long term (current) use of anticoagulants; Z79.82 Long term (current) use of aspirin; Z79.890 Hormone replacement therapy; Z20.822 Contact with and (suspected) exposure to COVID-19; N40.0 Benign prostatic hyperplasia without lower urinary tract symptoms; F20.9 Schizophrenia, unspecified
CPT/HCPCS: 36415; 71045; 80048; 80053; 81003; 83605; 84443; 84484; 85025; 87040; 90662; 90732; 93005; 96374; 99285-25; A9270-GY; G0008; G0009; G0378; J3490; U0002

== ENCOUNTER 2021-07-10 17:09 | Emergency (ER) | payer MEDICARE, MEDICAID ==
[2021-07-10 15:17] VITALS: BP 145/93; PULSE 73
[2021-07-10 16:22] LABS: ANION GAP 10.7 mEq/L (7-13); CHLORIDE,CL 103 mmol/L (98-107); SODIUM,NA 140 mmol/L (136-145)
[2021-07-10 16:37] LABS: CORONAVIRUS COVID-19 NAA NEGATIVE (NEGATIVE)
[~2021-07-10 17:09] MED LIST: methylPREDNISolone Sodium Succinate 125 MG/2 ML SDV IVPUSH ONE
== END 2021-07-10 17:18 | disposition home or self-care (01) ==
LOC: DL.ED 17:09
DX: S29.011A Strain of muscle and tendon of front wall of thorax, initial encounter (principal); J40 Bronchitis, not specified as acute or chronic; I48.91 Unspecified atrial fibrillation; F17.210 Nicotine dependence, cigarettes, uncomplicated; I25.10 Atherosclerotic heart disease of native coronary artery without angina pectoris; E78.00 Pure hypercholesterolemia, unspecified; I11.9 Hypertensive heart disease without heart failure; I25.2 Old myocardial infarction; E03.9 Hypothyroidism, unspecified; N40.0 Benign prostatic hyperplasia without lower urinary tract symptoms; E66.9 Obesity, unspecified; Z68.29 Body mass index [BMI] 29.0-29.9, adult; Z79.82 Long term (current) use of aspirin; Z79.899 Other long term (current) drug therapy; Z20.822 Contact with and (suspected) exposure to COVID-19
CPT/HCPCS: 0240U; 36415; 71046; 80053; 83605; 84484; 85025; 93005; 96374; 99284; J2930

== ENCOUNTER 2021-09-27 11:54 | Emergency (ER) | payer MEDICARE, MEDICAID ==
[2021-09-27 12:20] VITALS: BP 138/103; PULSE 78
[2021-09-27] MEDS ORDERED: Sodium Chloride 0.9% 10 ML Syringe FLUSH PRN (12:39)
[2021-09-27 13:40] LABS: ANION GAP 10.1 mEq/L (7-13); CHLORIDE,CL 100 mmol/L (98-107); SODIUM,NA 138 mmol/L (136-145)
[2021-09-27 13:44] LABS: ESTIMATED GFR 89 mL/min (>=60)
[2021-09-27 14:26] LABS: CORONAVIRUS COVID-19 NAA NEGATIVE (NEGATIVE); RESPIRATORY SYNCYTIAL VIR NAA NEGATIVE (NEGATIVE)
== END 2021-09-27 15:48 | disposition home or self-care (01) ==
LOC: DL.ED 11:54
DX: J44.1 Chronic obstructive pulmonary disease with (acute) exacerbation (principal); R60.0 Localized edema; F17.210 Nicotine dependence, cigarettes, uncomplicated; R91.1 Solitary pulmonary nodule; I48.91 Unspecified atrial fibrillation; I25.10 Atherosclerotic heart disease of native coronary artery without angina pectoris; I25.2 Old myocardial infarction; I11.9 Hypertensive heart disease without heart failure; E78.00 Pure hypercholesterolemia, unspecified; E03.9 Hypothyroidism, unspecified; E66.9 Obesity, unspecified; Z68.30 Body mass index [BMI] 30.0-30.9, adult; Z79.82 Long term (current) use of aspirin; Z79.899 Other long term (current) drug therapy; Z20.822 Contact with and (suspected) exposure to COVID-19
CPT/HCPCS: 0241U; 36415; 71045; 71250; 80053; 83605; 83735; 83880; 84145; 84443; 84484; 85025; 87040; 93005; 99285; 93010; 99284

== ENCOUNTER 2021-12-12 09:55 | Inpatient (IN) | payer MEDICARE, MEDICAID ==
[2021-12-12] MEDS ORDERED: Lactated Ringers 1,000 ML IV ONE (11:19)
[2021-12-12 11:24] LABS: ANION GAP 8.4 mEq/L (7-13); CHLORIDE,CL 103 mmol/L (98-107); SODIUM,NA 139 mmol/L (136-145)
[2021-12-12 11:26] LABS: ESTIMATED GFR 82 mL/min (>=60)
[2021-12-12 11:31] LABS: AMPHETAMINES,URINE NEGATIVE (NEGATIVE); BARBITURATES,URINE NEGATIVE (NEGATIVE); BENZODIAZEPINE,URINE NEGATIVE (NEGATIVE); MDMA (ECSTASY), URINE NEGATIVE (NEGATIVE); METHADONE,URINE NEGATIVE (NEGATIVE); METHAMPHETAMINES,URINE NEGATIVE (NEGATIVE); OPIATES,URINE NEGATIVE (NEGATIVE); OXYCODONE,URINE NEGATIVE (NEGATIVE); PHENCYCLIDINE,URINE NEGATIVE (NEGATIVE); TCA,URINE NEGATIVE (NEGATIVE)
[2021-12-12 11:38] LABS: CORONAVIRUS COVID-19 NAA NEGATIVE (NEGATIVE); RESPIRATORY SYNCYTIAL VIR NAA NEGATIVE (NEGATIVE)
[2021-12-12] MEDS ORDERED: Albuterol/Ipratropium 3.0-0.5 MG/3 ML Neb Soln NEB ONE (11:38)
[2021-12-12] MEDS ORDERED: Diltiazem 25 MG/5 ML SDV IVPUSH ONE ×2 (11:38→17:31)
[2021-12-12] MEDS ORDERED: methylPREDNISolone Sodium Succinate 125 MG/2 ML SDV IVPUSH ONE ×2 (12:55→21:53)
[2021-12-12] MEDS ORDERED: Ondansetron 4 MG/2 ML SDV IVPUSH PRN (15:26)
[2021-12-12] MEDS ORDERED: Polyethylene Glycol 3350 Powder 17 GM Packet PO PRN (15:26)
[2021-12-12] MEDS ORDERED: Magnesium Hydroxide 400 MG/5 ML Susp 30 ML Cup PO PRN (15:26)
[2021-12-12] MEDS ORDERED: HYDROmorphone 0.5 MG/0.5 ML Syringe IVPUSH PRN (15:26)
[2021-12-12] MEDS ORDERED: Acetaminophen/HYDROcodone 325-5 MG Tab PO PRN (15:26)
[2021-12-12] MEDS ORDERED: guaiFENesin/Dextromethorphan 100-10 MG/5 ML Soln 5 ML Cup PO PRN (15:31)
[2021-12-12] MEDS ORDERED: Nitroglycerin 0.4 MG Tab.SL SL PRN (15:32)
[2021-12-12] MEDS ORDERED: Zolpidem 5 MG Tab PO PRN (15:32)
[2021-12-12] MEDS ORDERED: Nicotine 21 MG/24 Hr Patch TRDERM ONE (15:40)
[2021-12-12] MEDS ORDERED: Diltiazem 125 MG in Sodium Chloride 0.9% 100 ML IV SCH (15:45)
[2021-12-12] MEDS ORDERED: Diltiazem 25 MG/5 ML SDV IVPUSH STA (18:53)
[2021-12-12] MEDS: QUEtiapine 100 MG Tab PO SCH (20:54)
[2021-12-12] MEDS: traZODone 50 MG Tab PO SCH (20:56)
[2021-12-12] MEDS: Melatonin 3 MG Tab PO SCH (20:57)
[2021-12-12] MEDS: Metoprolol Tartrate 5 MG/5 ML SDV IVPUSH PRN (20:58)
[2021-12-12] MEDS: hydrALAZINE 20 MG/ML SDV IVPUSH PRN (20:58)
[2021-12-12] MEDS ORDERED: Docusate Sodium 100 MG Cap PO ONE (21:00)
[2021-12-12] MEDS ORDERED: Docusate Sodium 100 MG Cap PO SCH (21:00)
[2021-12-12] MEDS ORDERED: Morphine 2 MG/ML SYRINGE IVPUSH ONE (21:56)
[2021-12-12] MEDS ORDERED: Midodrine 2.5 MG Tab PO ONE (22:13)
[2021-12-12] MEDS ORDERED: Lactated Ringers 1,000 ML IV SCH (22:15)
[2021-12-12] MEDS ORDERED: Lactated Ringers 500 ML IV SCH (22:15)
[2021-12-13 05:01] LABS: ANION GAP 11.7 mEq/L (7-13); CHLORIDE,CL 102 mmol/L (98-107); SODIUM,NA 138 mmol/L (136-145)
[2021-12-13 05:02] LABS: ESTIMATED GFR 99 mL/min (>=60)
[2021-12-13] MEDS: Levothyroxine 50 MCG Tab PO SCH (05:11)
[2021-12-13] MEDS: hydrALAZINE 20 MG/ML SDV IVPUSH PRN (05:12)
[2021-12-13] MEDS ORDERED: methylPREDNISolone Sodium Succinate 125 MG/2 ML SDV IVPUSH ONE (06:00)
[2021-12-13] MEDS ORDERED: Azithromycin 500 MG in Sodium Chloride 0.9% 250 ML IV SCH (06:00)
[2021-12-13] MEDS: Metoprolol Tartrate 5 MG/5 ML SDV IVPUSH PRN ×2 (06:16→16:06)
[2021-12-13] MEDS: Isosorbide Mononitrate 30 MG Tab.ER PO SCH (08:28)
[2021-12-13] MEDS: Rivaroxaban 10 MG Tab PO SCH (08:29)
[2021-12-13] MEDS: Multivitamin Tab PO SCH (08:29)
[2021-12-13] MEDS: Tamsulosin 0.4 MG Cap.ER PO SCH (08:29)
[2021-12-13] MEDS: Omeprazole 20 MG Cap.CR PO SCH (08:30)
[2021-12-13] MEDS: atorvaSTATin 20 MG Tab PO SCH (08:30)
[2021-12-13] MEDS: Aspirin 81 MG Tab.EC PO SCH (08:32)
[2021-12-13] MEDS: Metoprolol Succinate 50 MG Tab.ER PO SCH ×2 (08:32→20:04)
[2021-12-13] MEDS: Nicotine 21 MG/24 Hr Patch TRDERM SCH (08:33)
[2021-12-13] MEDS ORDERED: FOLIC AC PO SCH (09:00)
[2021-12-13] MEDS ORDERED: [UNRECOGNIZED DRUG - OTHER] PO SCH (09:00)
[2021-12-13] MEDS ORDERED: VIT BCOMP C PO SCH (09:00)
[2021-12-13] MEDS ORDERED: Metoprolol Succinate 50 MG Tab.ER PO SCH (09:00)
[2021-12-13] MEDS ORDERED: Bisacodyl 10 MG Supp RECTAL PRN (09:00)
[2021-12-13] MEDS ORDERED: IRON PO SCH (09:00)
[2021-12-13] MEDS: Albuterol/Ipratropium 3.0-0.5 MG/3 ML Neb Soln NEB SCH ×2 (09:09→20:00)
[2021-12-13] MEDS: methylPREDNISolone Sodium Succinate 125 MG/2 ML SDV IVPUSH SCH ×2 (13:18→20:03)
[2021-12-13] MEDS: Docusate Sodium 100 MG Cap PO SCH ×2 (15:53→20:01)
[2021-12-13] MEDS ORDERED: Digoxin 500 MCG/2 ML Amp IVPUSH ONE (16:24)
[2021-12-13] MEDS: Melatonin 3 MG Tab PO SCH (20:01)
[2021-12-13] MEDS: QUEtiapine 100 MG Tab PO SCH (20:02)
[2021-12-13] MEDS: traZODone 50 MG Tab PO SCH (20:04)
[2021-12-13] MEDS ORDERED: Furosemide 20 MG/2 ML VIAL IVPUSH ONE (21:44)
[2021-12-13] MEDS ORDERED: Morphine 2 MG/ML SYRINGE IVPUSH ONE (21:55)
[2021-12-13] MEDS: Albuterol/Ipratropium 3.0-0.5 MG/3 ML Neb Soln NEB PRN (22:05)
[2021-12-13 22:56] LABS: BICARBONATE,ARTERIAL 28.3 mmol/L (22-26); O2 DELIVERY DEVICE CPAP; O2 SATURATION ARTERIAL 99 % (95-100); PCO2 ARTERIAL 62 mmHg (35-45); PO2 ARTERIAL 153 mmHg (70-100)
[2021-12-13 22:57] LABS: ALLEN TEST PERFORMED; BASE EXCESS ARTERIAL 1 mmol/L ((-2)-(+3))
[2021-12-14] MEDS: methylPREDNISolone Sodium Succinate 125 MG/2 ML SDV IVPUSH SCH ×5 (00:11→23:41)
[2021-12-14] MEDS: Digoxin 500 MCG/2 ML Amp IVPUSH SCH ×4 (00:20→11:55)
[2021-12-14] MEDS: Levothyroxine 50 MCG Tab PO SCH (05:52)
[2021-12-14] MEDS: Albuterol/Ipratropium 3.0-0.5 MG/3 ML Neb Soln NEB SCH ×2 (06:03→18:26)
[2021-12-14 07:24] LABS: CHLORIDE,CL 102 mmol/L (98-107); SODIUM,NA 137 mmol/L (136-145)
[2021-12-14 07:26] LABS: ESTIMATED GFR 95 mL/min (>=60)
[2021-12-14] MEDS ORDERED: Digoxin 500 MCG/2 ML Amp IVPUSH SCH ×2 (09:00)
[2021-12-14] MEDS: atorvaSTATin 20 MG Tab PO SCH (09:49)
[2021-12-14] MEDS: Metoprolol Succinate 50 MG Tab.ER PO SCH ×2 (09:49→20:01)
[2021-12-14] MEDS: Multivitamin Tab PO SCH (09:49)
[2021-12-14] MEDS: Nicotine 21 MG/24 Hr Patch TRDERM SCH (09:49)
[2021-12-14] MEDS: Tamsulosin 0.4 MG Cap.ER PO SCH (09:50)
[2021-12-14] MEDS: Omeprazole 20 MG Cap.CR PO SCH (09:50)
[2021-12-14] MEDS: Aspirin 81 MG Tab.EC PO SCH (09:50)
[2021-12-14] MEDS: Isosorbide Mononitrate 30 MG Tab.ER PO SCH (09:50)
[2021-12-14] MEDS: Rivaroxaban 10 MG Tab PO SCH (09:50)
[2021-12-14] MEDS: Docusate Sodium 100 MG Cap PO SCH ×2 (09:50→20:00)
[2021-12-14] MEDS: Albuterol/Ipratropium 3.0-0.5 MG/3 ML Neb Soln NEB PRN (12:12)
[2021-12-14] MEDS: QUEtiapine 100 MG Tab PO SCH (20:01)
[2021-12-14] MEDS: Amiodarone 200 MG Tab PO SCH (20:01)
[2021-12-15] MEDS: Levothyroxine 50 MCG Tab PO SCH (05:55)
[2021-12-15] MEDS ORDERED: methylPREDNISolone Sodium Succinate 125 MG/2 ML SDV IVPUSH SCH (08:00)
[2021-12-15] MEDS: Metoprolol Tartrate 5 MG/5 ML SDV IVPUSH PRN ×2 (08:33→15:01)
[2021-12-15] MEDS: Docusate Sodium 100 MG Cap PO SCH ×2 (08:37→20:31)
[2021-12-15] MEDS: Omeprazole 20 MG Cap.CR PO SCH (08:37)
[2021-12-15] MEDS: Metoprolol Succinate 50 MG Tab.ER PO SCH ×2 (08:37→20:32)
[2021-12-15] MEDS: Aspirin 81 MG Tab.EC PO SCH (08:37)
[2021-12-15] MEDS: Tamsulosin 0.4 MG Cap.ER PO SCH (08:37)
[2021-12-15] MEDS: Isosorbide Mononitrate 30 MG Tab.ER PO SCH (08:38)
[2021-12-15] MEDS: atorvaSTATin 20 MG Tab PO SCH (08:38)
[2021-12-15] MEDS: Amiodarone 200 MG Tab PO SCH ×2 (08:38→20:32)
[2021-12-15] MEDS: Multivitamin Tab PO SCH (08:38)
[2021-12-15] MEDS: Rivaroxaban 10 MG Tab PO SCH (08:38)
[2021-12-15] MEDS: Nicotine 21 MG/24 Hr Patch TRDERM SCH (08:38)
[2021-12-15 08:39] LABS: ANION GAP 7.5 mEq/L (7-13)
[2021-12-15] MEDS ORDERED: Digoxin 125 MCG Tab PO SCH (09:00)
[2021-12-15] MEDS: Albuterol/Ipratropium 3.0-0.5 MG/3 ML Neb Soln NEB SCH (09:50)
[2021-12-15] MEDS ORDERED: Furosemide 20 MG/2 ML VIAL IVPUSH ONE (10:29)
[2021-12-15] MEDS ORDERED: Diltiazem 25 MG/5 ML SDV IVPUSH ONE (18:10)
[2021-12-15] MEDS ORDERED: Diltiazem 25 MG/5 ML SDV IVPUSH PRN (18:49)
[2021-12-15] MEDS: QUEtiapine 100 MG Tab PO SCH (20:34)
[2021-12-15] MEDS: predniSONE 20 MG Tab PO SCH (20:34)
[2021-12-15] MEDS: ALPRAZolam 0.5 MG Tab PO SCH (20:35)
[2021-12-15] MEDS ORDERED: Metoprolol Tartrate 50 MG Tab PO SCH (21:00)
[2021-12-15] MEDS ORDERED: Metoprolol Succinate 50 MG Tab.ER PO SCH (21:00)
[2021-12-16 06:58] LABS: ANION GAP 5.4 mEq/L (7-13)
[2021-12-16] MEDS: predniSONE 20 MG Tab PO SCH ×2 (08:41→20:35)
[2021-12-16] MEDS: Multivitamin Tab PO SCH (08:41)
[2021-12-16] MEDS: ALPRAZolam 0.5 MG Tab PO SCH (08:41)
[2021-12-16] MEDS: Furosemide 40 MG Tab PO SCH (08:41)
[2021-12-16] MEDS: Omeprazole 20 MG Cap.CR PO SCH (08:41)
[2021-12-16] MEDS: Isosorbide Mononitrate 30 MG Tab.ER PO SCH (08:41)
[2021-12-16] MEDS: Rivaroxaban 10 MG Tab PO SCH (08:41)
[2021-12-16] MEDS: Aspirin 81 MG Tab.EC PO SCH (08:41)
[2021-12-16] MEDS: Amiodarone 200 MG Tab PO SCH ×2 (08:42→20:35)
[2021-12-16] MEDS: Diltiazem 120 MG Cap.CD PO SCH (08:42)
[2021-12-16] MEDS: atorvaSTATin 20 MG Tab PO SCH (08:42)
[2021-12-16] MEDS: Metoprolol Succinate 50 MG Tab.ER PO SCH ×2 (08:42→20:36)
[2021-12-16] MEDS: Docusate Sodium 100 MG Cap PO SCH ×2 (08:43→20:35)
[2021-12-16] MEDS: Nicotine 21 MG/24 Hr Patch TRDERM SCH (08:43)
[2021-12-16] MEDS: Tamsulosin 0.4 MG Cap.ER PO SCH (08:43)
[2021-12-16] MEDS: Levothyroxine 50 MCG Tab PO SCH (08:43)
[2021-12-16] MEDS ORDERED: LEVALBUTEROL INH PRN (10:13)
[2021-12-16] MEDS: [UNRECOGNIZED DRUG - REMARK] PO SCH (11:20)
[2021-12-16] MEDS ORDERED: methylPREDNISolone Sodium Succinate 125 MG/2 ML SDV IVPUSH ONE (11:25)
[2021-12-16] MEDS ORDERED: Morphine 2 MG/ML SYRINGE IVPUSH ONE (11:26)
[2021-12-16 11:28] LABS: O2 DELIVERY DEVICE BIPAP
[2021-12-16 11:31] LABS: BICARBONATE,ARTERIAL 36.9 mmol/L (22-26); O2 SATURATION ARTERIAL 93 % (95-100); PCO2 ARTERIAL 63 mmHg (35-45); PO2 ARTERIAL 75 mmHg (70-100)
[2021-12-16 11:32] LABS: ALLEN TEST PERFORMED; BASE EXCESS ARTERIAL 10 mmol/L ((-2)-(+3))
[2021-12-16] MEDS ORDERED: Amiodarone In Dextrose,Iso-Osm 150 MG in Premix Bag 1 BAG IV ONE ×2 (13:30)
[2021-12-16] MEDS: QUEtiapine 100 MG Tab PO SCH (20:35)
[2021-12-16] MEDS: guaiFENesin 600 MG Tab.ER PO SCH (20:35)
[2021-12-17] MEDS: Levothyroxine 50 MCG Tab PO SCH (06:10)
[2021-12-17] MEDS: Docusate Sodium 100 MG Cap PO SCH ×2 (09:33→20:28)
[2021-12-17] MEDS: Furosemide 40 MG Tab PO SCH (09:33)
[2021-12-17] MEDS: Omeprazole 20 MG Cap.CR PO SCH (09:33)
[2021-12-17] MEDS: predniSONE 20 MG Tab PO SCH ×2 (09:34→20:28)
[2021-12-17] MEDS: atorvaSTATin 20 MG Tab PO SCH (09:35)
[2021-12-17] MEDS: Tamsulosin 0.4 MG Cap.ER PO SCH (09:35)
[2021-12-17] MEDS: guaiFENesin 600 MG Tab.ER PO SCH ×2 (09:35→20:28)
[2021-12-17] MEDS: Multivitamin Tab PO SCH (09:37)
[2021-12-17] MEDS: Aspirin 81 MG Tab.EC PO SCH (09:37)
[2021-12-17] MEDS: Metoprolol Succinate 50 MG Tab.ER PO SCH ×2 (09:38→20:29)
[2021-12-17] MEDS: Diltiazem 120 MG Cap.CD PO SCH (09:38)
[2021-12-17] MEDS: Isosorbide Mononitrate 30 MG Tab.ER PO SCH (09:39)
[2021-12-17] MEDS: Rivaroxaban 10 MG Tab PO SCH (09:39)
[2021-12-17] MEDS: [UNRECOGNIZED DRUG - REMARK] PO SCH (09:40)
[2021-12-17] MEDS: Amiodarone 200 MG Tab PO SCH ×2 (09:40→20:28)
[2021-12-17] MEDS: Nicotine 21 MG/24 Hr Patch TRDERM SCH (09:41)
[2021-12-17] MEDS: QUEtiapine 100 MG Tab PO SCH (20:28)
[2021-12-18] MEDS: Levothyroxine 50 MCG Tab PO SCH (05:14)
[2021-12-18 06:44] LABS: ANION GAP 4.2 mEq/L (7-13)
[2021-12-18] MEDS: Nicotine 21 MG/24 Hr Patch TRDERM SCH (08:18)
[2021-12-18] MEDS: atorvaSTATin 20 MG Tab PO SCH (08:20)
[2021-12-18] MEDS: guaiFENesin 600 MG Tab.ER PO SCH ×2 (08:22→20:37)
[2021-12-18] MEDS: Omeprazole 20 MG Cap.CR PO SCH (08:22)
[2021-12-18] MEDS: Isosorbide Mononitrate 30 MG Tab.ER PO SCH (08:22)
[2021-12-18] MEDS: Rivaroxaban 10 MG Tab PO SCH (08:23)
[2021-12-18] MEDS: Tamsulosin 0.4 MG Cap.ER PO SCH (08:24)
[2021-12-18] MEDS: Furosemide 40 MG Tab PO SCH (08:24)
[2021-12-18] MEDS: Metoprolol Succinate 50 MG Tab.ER PO SCH ×2 (08:24→20:36)
[2021-12-18] MEDS: Amiodarone 200 MG Tab PO SCH ×2 (08:25→20:37)
[2021-12-18] MEDS: Docusate Sodium 100 MG Cap PO SCH ×2 (08:25→20:36)
[2021-12-18] MEDS: Multivitamin Tab PO SCH (08:25)
[2021-12-18] MEDS: Diltiazem 120 MG Cap.CD PO SCH (08:27)
[2021-12-18] MEDS: Aspirin 81 MG Tab.EC PO SCH (08:27)
[2021-12-18] MEDS: predniSONE 20 MG Tab PO SCH (08:28)
[2021-12-18] MEDS ORDERED: Sodium Polystyrene Sulfonate 15 GM/60 ML Susp 60 ML Bot PO ONE (09:00)
[2021-12-18] MEDS: [UNRECOGNIZED DRUG - REMARK] PO SCH (09:49)
[2021-12-18] MEDS: QUEtiapine 100 MG Tab PO SCH (20:35)
[2021-12-19] MEDS: Levothyroxine 50 MCG Tab PO SCH (05:48)
[2021-12-19 07:23] LABS: ANION GAP 3.4 mEq/L (7-13)
[2021-12-19] MEDS: Aspirin 81 MG Tab.EC PO SCH (09:29)
[2021-12-19] MEDS: predniSONE 20 MG Tab PO SCH (09:29)
[2021-12-19] MEDS: Omeprazole 20 MG Cap.CR PO SCH (09:30)
[2021-12-19] MEDS: Isosorbide Mononitrate 30 MG Tab.ER PO SCH (09:30)
[2021-12-19] MEDS: Rivaroxaban 10 MG Tab PO SCH (09:30)
[2021-12-19] MEDS: atorvaSTATin 20 MG Tab PO SCH (09:31)
[2021-12-19] MEDS: Metoprolol Succinate 50 MG Tab.ER PO SCH ×2 (09:31→20:43)
[2021-12-19] MEDS: acetaZOLAMIDE 250 MG Tab PO SCH ×3 (09:31→20:43)
[2021-12-19] MEDS: guaiFENesin 600 MG Tab.ER PO SCH ×3 (09:32→20:43)
[2021-12-19] MEDS: Furosemide 40 MG Tab PO SCH (09:32)
[2021-12-19] MEDS: Tamsulosin 0.4 MG Cap.ER PO SCH (09:32)
[2021-12-19] MEDS: Docusate Sodium 100 MG Cap PO SCH ×3 (09:32→20:42)
[2021-12-19] MEDS: Diltiazem 120 MG Cap.CD PO SCH (09:32)
[2021-12-19] MEDS: Multivitamin Tab PO SCH (09:32)
[2021-12-19] MEDS: Amiodarone 200 MG Tab PO SCH ×2 (09:32→20:42)
[2021-12-19] MEDS: Nicotine 21 MG/24 Hr Patch TRDERM SCH (09:33)
[2021-12-19] MEDS: [UNRECOGNIZED DRUG - REMARK] PO SCH (09:34)
[2021-12-19] MEDS ORDERED: QUEtiapine 100 MG Tab PO SCH (21:00)
[2021-12-19] MEDS ORDERED: QUEtiapine 100 MG Tab PO ONE (21:15)
[2021-12-19] MEDS ORDERED: QUEtiapine 25 MG Tab PO ONE (21:15)
[2021-12-20] MEDS: Levothyroxine 50 MCG Tab PO SCH (06:19)
[2021-12-20] MEDS: Nicotine 21 MG/24 Hr Patch TRDERM SCH (08:58)
[2021-12-20] MEDS: atorvaSTATin 20 MG Tab PO SCH (08:59)
[2021-12-20] MEDS: acetaZOLAMIDE 250 MG Tab PO SCH ×2 (08:59→20:23)
[2021-12-20] MEDS: Docusate Sodium 100 MG Cap PO SCH ×2 (09:00→20:27)
[2021-12-20] MEDS: guaiFENesin 600 MG Tab.ER PO SCH ×2 (09:00→20:24)
[2021-12-20] MEDS: Amiodarone 200 MG Tab PO SCH ×2 (09:00→20:23)
[2021-12-20] MEDS: Omeprazole 20 MG Cap.CR PO SCH (09:00)
[2021-12-20] MEDS: Furosemide 40 MG Tab PO SCH (09:01)
[2021-12-20] MEDS: Isosorbide Mononitrate 30 MG Tab.ER PO SCH (09:01)
[2021-12-20] MEDS: Aspirin 81 MG Tab.EC PO SCH (09:01)
[2021-12-20] MEDS: Tamsulosin 0.4 MG Cap.ER PO SCH (09:01)
[2021-12-20] MEDS: Diltiazem 120 MG Cap.CD PO SCH (09:02)
[2021-12-20] MEDS: predniSONE 20 MG Tab PO SCH (09:02)
[2021-12-20] MEDS: Multivitamin Tab PO SCH (09:02)
[2021-12-20] MEDS: Metoprolol Succinate 50 MG Tab.ER PO SCH (09:03)
[2021-12-20] MEDS: Rivaroxaban 10 MG Tab PO SCH (09:03)
[2021-12-20] MEDS: [UNRECOGNIZED DRUG - REMARK] PO SCH (09:12)
[2021-12-20] MEDS: QUEtiapine 100 MG Tab PO SCH (20:23)
[2021-12-20] MEDS: Acetaminophen 325 MG Tab PO PRN (20:24)
[2021-12-21] MEDS: Levothyroxine 50 MCG Tab PO SCH (05:40)
[2021-12-21] MEDS: Nicotine 21 MG/24 Hr Patch TRDERM SCH (08:57)
[2021-12-21] MEDS: Rivaroxaban 10 MG Tab PO SCH (08:58)
[2021-12-21] MEDS: atorvaSTATin 20 MG Tab PO SCH (08:58)
[2021-12-21] MEDS: guaiFENesin 600 MG Tab.ER PO SCH ×2 (08:58→21:40)
[2021-12-21] MEDS: Docusate Sodium 100 MG Cap PO SCH ×2 (08:58→21:40)
[2021-12-21] MEDS: Metoprolol Succinate 50 MG Tab.ER PO SCH (08:59)
[2021-12-21] MEDS: predniSONE 20 MG Tab PO SCH (08:59)
[2021-12-21] MEDS: Omeprazole 20 MG Cap.CR PO SCH (08:59)
[2021-12-21] MEDS ORDERED: Isosorbide Mononitrate 30 MG Tab.ER PO SCH (09:00)
[2021-12-21] MEDS: Amiodarone 200 MG Tab PO SCH ×2 (09:00→21:41)
[2021-12-21] MEDS: Furosemide 40 MG Tab PO SCH (09:00)
[2021-12-21] MEDS ORDERED: Diltiazem 180 MG Cap.CD PO SCH (09:00)
[2021-12-21] MEDS: acetaZOLAMIDE 250 MG Tab PO SCH ×2 (09:01→21:40)
[2021-12-21] MEDS: Aspirin 81 MG Tab.EC PO SCH (09:01)
[2021-12-21] MEDS: Tamsulosin 0.4 MG Cap.ER PO SCH (09:01)
[2021-12-21] MEDS: Multivitamin Tab PO SCH (09:01)
[2021-12-21] MEDS: [UNRECOGNIZED DRUG - REMARK] PO SCH (09:10)
[2021-12-21] MEDS: QUEtiapine 100 MG Tab PO SCH (21:41)
[2021-12-21] MEDS: Acetaminophen 325 MG Tab PO PRN (21:41)
[2021-12-22] MEDS: Levothyroxine 50 MCG Tab PO SCH (05:44)
[2021-12-22] MEDS: Diltiazem 120 MG Cap.CD PO SCH (09:26)
[2021-12-22] MEDS: guaiFENesin 600 MG Tab.ER PO SCH ×2 (09:27→21:07)
[2021-12-22] MEDS: atorvaSTATin 20 MG Tab PO SCH (09:27)
[2021-12-22] MEDS: Tamsulosin 0.4 MG Cap.ER PO SCH (09:28)
[2021-12-22] MEDS: acetaZOLAMIDE 250 MG Tab PO SCH (09:28)
[2021-12-22] MEDS: Aspirin 81 MG Tab.EC PO SCH (09:28)
[2021-12-22] MEDS: Rivaroxaban 10 MG Tab PO SCH (09:28)
[2021-12-22] MEDS: Furosemide 20 MG Tab PO SCH (09:28)
[2021-12-22] MEDS: Multivitamin Tab PO SCH (09:28)
[2021-12-22] MEDS: Docusate Sodium 100 MG Cap PO SCH ×2 (09:28→21:06)
[2021-12-22] MEDS: Omeprazole 20 MG Cap.CR PO SCH (09:28)
[2021-12-22] MEDS: [UNRECOGNIZED DRUG - REMARK] PO SCH (09:29)
[2021-12-22] MEDS: predniSONE 20 MG Tab PO SCH (09:29)
[2021-12-22] MEDS: Nicotine 21 MG/24 Hr Patch TRDERM SCH (09:33)
[2021-12-22] MEDS: Metoprolol Tartrate 50 MG Tab PO SCH ×2 (11:35→21:08)
[2021-12-22] MEDS ORDERED: Sodium Chloride 0.9% 1,000 ML IV SCH (21:00)
[2021-12-22] MEDS: Amiodarone 200 MG Tab PO SCH (21:07)
[2021-12-22] MEDS: QUEtiapine 100 MG Tab PO SCH (21:07)
[2021-12-23] MEDS: Levothyroxine 50 MCG Tab PO SCH (05:42)
[2021-12-23] MEDS ORDERED: Amiodarone 200 MG Tab PO SCH (09:00)
[2021-12-23] MEDS: Nicotine 21 MG/24 Hr Patch TRDERM SCH (09:05)
[2021-12-23] MEDS: Diltiazem 120 MG Cap.CD PO SCH (09:06)
[2021-12-23] MEDS: Docusate Sodium 100 MG Cap PO SCH ×2 (09:06→20:01)
[2021-12-23] MEDS: guaiFENesin 600 MG Tab.ER PO SCH ×2 (09:06→20:00)
[2021-12-23] MEDS: Multivitamin Tab PO SCH (09:07)
[2021-12-23] MEDS: Furosemide 20 MG Tab PO SCH (09:07)
[2021-12-23] MEDS: Tamsulosin 0.4 MG Cap.ER PO SCH (09:07)
[2021-12-23] MEDS: Rivaroxaban 10 MG Tab PO SCH (09:07)
[2021-12-23] MEDS: atorvaSTATin 20 MG Tab PO SCH (09:08)
[2021-12-23] MEDS: predniSONE 20 MG Tab PO SCH ×2 (09:08→16:21)
[2021-12-23] MEDS: Omeprazole 20 MG Cap.CR PO SCH (09:09)
[2021-12-23] MEDS: Aspirin 81 MG Tab.EC PO SCH (09:09)
[2021-12-23] MEDS: Metoprolol Tartrate 50 MG Tab PO SCH ×2 (09:09→20:01)
[2021-12-23] MEDS: Amiodarone 200 MG Tab PO SCH ×3 (09:09→20:00)
[2021-12-23] MEDS: [UNRECOGNIZED DRUG - REMARK] PO SCH (09:10)
[2021-12-23] MEDS: Metoprolol Succinate 50 MG Tab.ER PO SCH (16:21)
[2021-12-23] MEDS: QUEtiapine 100 MG Tab PO SCH (20:00)
[2021-12-24] MEDS: Levothyroxine 50 MCG Tab PO SCH (05:41)
[2021-12-24] MEDS: Docusate Sodium 100 MG Cap PO SCH ×2 (08:33→20:49)
[2021-12-24] MEDS: Rivaroxaban 10 MG Tab PO SCH (08:34)
[2021-12-24] MEDS: Aspirin 81 MG Tab.EC PO SCH (08:34)
[2021-12-24] MEDS: Furosemide 20 MG Tab PO SCH (08:35)
[2021-12-24] MEDS: Diltiazem 120 MG Cap.CD PO SCH (08:35)
[2021-12-24] MEDS: Omeprazole 20 MG Cap.CR PO SCH (08:35)
[2021-12-24] MEDS: Multivitamin Tab PO SCH (08:35)
[2021-12-24] MEDS: Tamsulosin 0.4 MG Cap.ER PO SCH (08:36)
[2021-12-24] MEDS: predniSONE 20 MG Tab PO SCH (08:36)
[2021-12-24] MEDS: guaiFENesin 600 MG Tab.ER PO SCH ×2 (08:36→20:50)
[2021-12-24] MEDS: Metoprolol Tartrate 50 MG Tab PO SCH ×2 (08:36→20:48)
[2021-12-24] MEDS: Nicotine 21 MG/24 Hr Patch TRDERM SCH (08:37)
[2021-12-24] MEDS: Amiodarone 200 MG Tab PO SCH ×2 (08:37→20:48)
[2021-12-24] MEDS: atorvaSTATin 20 MG Tab PO SCH (08:37)
[2021-12-24] MEDS: [UNRECOGNIZED DRUG - REMARK] PO SCH (08:42)
[2021-12-24] MEDS: QUEtiapine 100 MG Tab PO SCH (20:50)
[2021-12-25] MEDS: Levothyroxine 50 MCG Tab PO SCH (05:56)
[2021-12-25] MEDS: [UNRECOGNIZED DRUG - REMARK] PO SCH (10:05)
[2021-12-25] MEDS: Nicotine 21 MG/24 Hr Patch TRDERM SCH (10:05)
[2021-12-25] MEDS: Aspirin 81 MG Tab.EC PO SCH (10:07)
[2021-12-25] MEDS: Omeprazole 20 MG Cap.CR PO SCH (10:07)
[2021-12-25] MEDS: Furosemide 20 MG Tab PO SCH (10:07)
[2021-12-25] MEDS: guaiFENesin 600 MG Tab.ER PO SCH ×2 (10:08→21:05)
[2021-12-25] MEDS: atorvaSTATin 20 MG Tab PO SCH (10:08)
[2021-12-25] MEDS: Multivitamin Tab PO SCH (10:09)
[2021-12-25] MEDS: predniSONE 20 MG Tab PO SCH (10:09)
[2021-12-25] MEDS: Rivaroxaban 10 MG Tab PO SCH (10:10)
[2021-12-25] MEDS: Tamsulosin 0.4 MG Cap.ER PO SCH (10:10)
[2021-12-25] MEDS: Amiodarone 200 MG Tab PO SCH ×2 (10:11→21:06)
[2021-12-25] MEDS: Metoprolol Tartrate 50 MG Tab PO SCH ×2 (10:11→21:05)
[2021-12-25] MEDS: Docusate Sodium 100 MG Cap PO SCH ×2 (10:11→21:05)
[2021-12-25] MEDS: Diltiazem 120 MG Cap.CD PO SCH (10:12)
[2021-12-25] MEDS: QUEtiapine 100 MG Tab PO SCH (21:06)
[2021-12-26] MEDS: Levothyroxine 50 MCG Tab PO SCH (05:28)
[2021-12-26] MEDS: Diltiazem 120 MG Cap.CD PO SCH (08:32)
[2021-12-26] MEDS: Docusate Sodium 100 MG Cap PO SCH ×2 (08:33→20:36)
[2021-12-26] MEDS: Amiodarone 200 MG Tab PO SCH ×2 (08:33→20:36)
[2021-12-26] MEDS: Multivitamin Tab PO SCH (08:33)
[2021-12-26] MEDS: Furosemide 20 MG Tab PO SCH (08:33)
[2021-12-26] MEDS: Rivaroxaban 10 MG Tab PO SCH (08:33)
[2021-12-26] MEDS: Metoprolol Tartrate 50 MG Tab PO SCH ×2 (08:33→20:36)
[2021-12-26] MEDS: predniSONE 20 MG Tab PO SCH (08:34)
[2021-12-26] MEDS: Tamsulosin 0.4 MG Cap.ER PO SCH (08:34)
[2021-12-26] MEDS: Aspirin 81 MG Tab.EC PO SCH (08:34)
[2021-12-26] MEDS: Nicotine 21 MG/24 Hr Patch TRDERM SCH (08:34)
[2021-12-26] MEDS: Omeprazole 20 MG Cap.CR PO SCH (08:34)
[2021-12-26] MEDS: guaiFENesin 600 MG Tab.ER PO SCH ×2 (08:34→20:36)
[2021-12-26] MEDS: atorvaSTATin 20 MG Tab PO SCH (08:35)
[2021-12-26] MEDS: [UNRECOGNIZED DRUG - REMARK] PO SCH (09:07)
[2021-12-26] MEDS: QUEtiapine 100 MG Tab PO SCH (20:37)
[2021-12-27] MEDS: Levothyroxine 50 MCG Tab PO SCH (06:04)
[2021-12-27] MEDS: Rivaroxaban 10 MG Tab PO SCH (09:26)
[2021-12-27] MEDS: Omeprazole 20 MG Cap.CR PO SCH (09:26)
[2021-12-27] MEDS: Aspirin 81 MG Tab.EC PO SCH (09:26)
[2021-12-27] MEDS: Amiodarone 200 MG Tab PO SCH ×2 (09:26→21:21)
[2021-12-27] MEDS: Docusate Sodium 100 MG Cap PO SCH ×2 (09:26→21:20)
[2021-12-27] MEDS: guaiFENesin 600 MG Tab.ER PO SCH ×2 (09:26→21:21)
[2021-12-27] MEDS: Tamsulosin 0.4 MG Cap.ER PO SCH (09:26)
[2021-12-27] MEDS: Multivitamin Tab PO SCH (09:26)
[2021-12-27] MEDS: predniSONE 20 MG Tab PO SCH (09:26)
[2021-12-27] MEDS: Metoprolol Tartrate 50 MG Tab PO SCH ×2 (09:27→21:22)
[2021-12-27] MEDS: Diltiazem 120 MG Cap.CD PO SCH (09:27)
[2021-12-27] MEDS: Nicotine 21 MG/24 Hr Patch TRDERM SCH (09:27)
[2021-12-27] MEDS: Furosemide 20 MG Tab PO SCH (09:27)
[2021-12-27] MEDS: atorvaSTATin 20 MG Tab PO SCH (09:28)
[2021-12-27] MEDS: Acetaminophen 325 MG Tab PO PRN (09:35)
[2021-12-27] MEDS: [UNRECOGNIZED DRUG - REMARK] PO SCH (09:35)
[2021-12-27] MEDS: QUEtiapine 100 MG Tab PO SCH (21:21)
[2021-12-28] MEDS: Levothyroxine 50 MCG Tab PO SCH (06:30)
[2021-12-28] MEDS: atorvaSTATin 20 MG Tab PO SCH (08:16)
[2021-12-28] MEDS: Omeprazole 20 MG Cap.CR PO SCH (08:17)
[2021-12-28] MEDS: Furosemide 20 MG Tab PO SCH (08:17)
[2021-12-28] MEDS: Aspirin 81 MG Tab.EC PO SCH (08:17)
[2021-12-28] MEDS: Multivitamin Tab PO SCH (08:17)
[2021-12-28] MEDS: guaiFENesin 600 MG Tab.ER PO SCH ×2 (08:17→20:58)
[2021-12-28] MEDS: Docusate Sodium 100 MG Cap PO SCH ×2 (08:17→20:58)
[2021-12-28] MEDS: Diltiazem 120 MG Cap.CD PO SCH (08:17)
[2021-12-28] MEDS: Tamsulosin 0.4 MG Cap.ER PO SCH (08:17)
[2021-12-28] MEDS: Rivaroxaban 10 MG Tab PO SCH (08:17)
[2021-12-28] MEDS: predniSONE 20 MG Tab PO SCH (08:17)
[2021-12-28] MEDS: Nicotine 21 MG/24 Hr Patch TRDERM SCH (08:18)
[2021-12-28] MEDS: Amiodarone 200 MG Tab PO SCH ×2 (08:18→20:58)
[2021-12-28] MEDS: Metoprolol Tartrate 50 MG Tab PO SCH ×2 (08:19→20:57)
[2021-12-28] MEDS: [UNRECOGNIZED DRUG - REMARK] PO SCH (08:19)
[2021-12-28] MEDS: QUEtiapine 100 MG Tab PO SCH (20:56)
[2021-12-29] MEDS: Levothyroxine 50 MCG Tab PO SCH (05:55)
[2021-12-29] MEDS: Diltiazem 120 MG Cap.CD PO SCH (08:49)
[2021-12-29] MEDS: Amiodarone 200 MG Tab PO SCH ×2 (08:49→21:19)
[2021-12-29] MEDS: atorvaSTATin 20 MG Tab PO SCH (08:50)
[2021-12-29] MEDS: Tamsulosin 0.4 MG Cap.ER PO SCH (08:50)
[2021-12-29] MEDS: Rivaroxaban 10 MG Tab PO SCH (08:50)
[2021-12-29] MEDS: Furosemide 20 MG Tab PO SCH (08:51)
[2021-12-29] MEDS: Metoprolol Tartrate 50 MG Tab PO SCH ×2 (08:51→21:18)
[2021-12-29] MEDS: Docusate Sodium 100 MG Cap PO SCH ×2 (08:51→21:18)
[2021-12-29] MEDS: Omeprazole 20 MG Cap.CR PO SCH (08:51)
[2021-12-29] MEDS: Aspirin 81 MG Tab.EC PO SCH (08:52)
[2021-12-29] MEDS: predniSONE 20 MG Tab PO SCH (08:52)
[2021-12-29] MEDS: Multivitamin Tab PO SCH (08:52)
[2021-12-29] MEDS: guaiFENesin 600 MG Tab.ER PO SCH ×2 (08:52→21:19)
[2021-12-29] MEDS: Nicotine 21 MG/24 Hr Patch TRDERM SCH (08:52)
[2021-12-29] MEDS: [UNRECOGNIZED DRUG - REMARK] PO SCH (08:58)
[2021-12-29] MEDS: QUEtiapine 100 MG Tab PO SCH (21:18)
[2021-12-30] MEDS: Levothyroxine 50 MCG Tab PO SCH (05:38)
[2021-12-30] MEDS: atorvaSTATin 20 MG Tab PO SCH (08:37)
[2021-12-30] MEDS: Rivaroxaban 10 MG Tab PO SCH (08:37)
[2021-12-30] MEDS: Aspirin 81 MG Tab.EC PO SCH (08:37)
[2021-12-30] MEDS: Docusate Sodium 100 MG Cap PO SCH ×2 (08:37→21:00)
[2021-12-30] MEDS: Tamsulosin 0.4 MG Cap.ER PO SCH (08:37)
[2021-12-30] MEDS: Multivitamin Tab PO SCH (08:38)
[2021-12-30] MEDS: guaiFENesin 600 MG Tab.ER PO SCH ×2 (08:38→21:01)
[2021-12-30] MEDS: predniSONE 20 MG Tab PO SCH (08:38)
[2021-12-30] MEDS: Omeprazole 20 MG Cap.CR PO SCH (08:38)
[2021-12-30] MEDS: Nicotine 21 MG/24 Hr Patch TRDERM SCH (08:39)
[2021-12-30] MEDS: Furosemide 20 MG Tab PO SCH (08:40)
[2021-12-30] MEDS: Metoprolol Tartrate 50 MG Tab PO SCH ×2 (08:41→21:00)
[2021-12-30] MEDS: Diltiazem 120 MG Cap.CD PO SCH (08:41)
[2021-12-30] MEDS: Amiodarone 200 MG Tab PO SCH ×2 (08:42→21:00)
[2021-12-30] MEDS: [UNRECOGNIZED DRUG - REMARK] PO SCH (08:47)
[2021-12-30] MEDS: QUEtiapine 100 MG Tab PO SCH (21:00)
[2021-12-31] MEDS: Levothyroxine 50 MCG Tab PO SCH (06:02)
[2021-12-31] MEDS: Nicotine 21 MG/24 Hr Patch TRDERM SCH (08:53)
[2021-12-31] MEDS: Amiodarone 200 MG Tab PO SCH ×2 (08:56→20:38)
[2021-12-31] MEDS: Rivaroxaban 10 MG Tab PO SCH (08:56)
[2021-12-31] MEDS: Furosemide 20 MG Tab PO SCH (08:56)
[2021-12-31] MEDS: Omeprazole 20 MG Cap.CR PO SCH (08:56)
[2021-12-31] MEDS: Tamsulosin 0.4 MG Cap.ER PO SCH (08:57)
[2021-12-31] MEDS: Multivitamin Tab PO SCH (08:57)
[2021-12-31] MEDS: guaiFENesin 600 MG Tab.ER PO SCH ×2 (08:57→20:38)
[2021-12-31] MEDS: Docusate Sodium 100 MG Cap PO SCH ×2 (08:58→20:38)
[2021-12-31] MEDS: Metoprolol Tartrate 50 MG Tab PO SCH ×2 (08:58→20:38)
[2021-12-31] MEDS: predniSONE 20 MG Tab PO SCH (08:58)
[2021-12-31] MEDS: Diltiazem 120 MG Cap.CD PO SCH (08:58)
[2021-12-31] MEDS: atorvaSTATin 20 MG Tab PO SCH (08:59)
[2021-12-31] MEDS: [UNRECOGNIZED DRUG - REMARK] PO SCH (09:01)
[2021-12-31] MEDS: Aspirin 81 MG Tab.EC PO SCH (09:02)
[2021-12-31] MEDS: QUEtiapine 100 MG Tab PO SCH (20:38)
[2022-01-01] MEDS: Levothyroxine 50 MCG Tab PO SCH (05:48)
[2022-01-01 08:27] VITALS: BP 115/77; PULSE 83
[2022-01-01] MEDS ORDERED: predniSONE 20 MG Tab PO SCH (09:00)
[2022-01-01] MEDS: Docusate Sodium 100 MG Cap PO SCH (09:07)
[2022-01-01] MEDS: Tamsulosin 0.4 MG Cap.ER PO SCH (09:07)
[2022-01-01] MEDS: Rivaroxaban 10 MG Tab PO SCH (09:07)
[2022-01-01] MEDS: Omeprazole 20 MG Cap.CR PO SCH (09:07)
[2022-01-01] MEDS: Metoprolol Tartrate 50 MG Tab PO SCH (09:07)
[2022-01-01] MEDS: Diltiazem 120 MG Cap.CD PO SCH (09:08)
[2022-01-01] MEDS: Multivitamin Tab PO SCH (09:08)
[2022-01-01] MEDS: Amiodarone 200 MG Tab PO SCH (09:08)
[2022-01-01] MEDS: Furosemide 20 MG Tab PO SCH (09:08)
[2022-01-01] MEDS: guaiFENesin 600 MG Tab.ER PO SCH (09:08)
[2022-01-01] MEDS: Aspirin 81 MG Tab.EC PO SCH (09:08)
[2022-01-01] MEDS: atorvaSTATin 20 MG Tab PO SCH (09:09)
[2022-01-01] MEDS: Nicotine 21 MG/24 Hr Patch TRDERM SCH (09:09)
[2022-01-01] MEDS: [UNRECOGNIZED DRUG - REMARK] PO SCH (09:35)
== END 2022-01-01 11:33 | disposition home health service (06) | DRG 208 ==
LOC: DL.ED 09:55 → DL.MS 13:58 → DL.ED 14:06
PROVIDERS: ADMIT Internal Medicine; ATTEND Internal Medicine
PROC: 0BH17EZ Insertion of Endotracheal Airway into Trachea, Via Natural or Artificial Opening (ICD-10-PCS; principal; 2021-12-12)
PROC: 5A1935Z Respiratory Ventilation, Less than 24 Consecutive Hours (ICD-10-PCS; 2021-12-12)
PROC: 5A09357 Assistance with Respiratory Ventilation, Less than 24 Consecutive Hours, Continuous Positive Airway Pressure (ICD-10-PCS; 2021-12-12)
DX: I48.91 Unspecified atrial fibrillation (principal); J96.22 Acute and chronic respiratory failure with hypercapnia; I48.20 Chronic atrial fibrillation, unspecified; J44.1 Chronic obstructive pulmonary disease with (acute) exacerbation; F20.0 Paranoid schizophrenia; I10 Essential (primary) hypertension; E87.3 Alkalosis; I42.9 Cardiomyopathy, unspecified; I44.7 Left bundle-branch block, unspecified; I25.10 Atherosclerotic heart disease of native coronary artery without angina pectoris; I11.0 Hypertensive heart disease with heart failure; I50.9 Heart failure, unspecified; E03.9 Hypothyroidism, unspecified; H54.7 Unspecified visual loss; F31.9 Bipolar disorder, unspecified; Z66 Do not resuscitate; E78.5 Hyperlipidemia, unspecified; F17.210 Nicotine dependence, cigarettes, uncomplicated; D50.9 Iron deficiency anemia, unspecified; K21.9 Gastro-esophageal reflux disease without esophagitis; R59.1 Generalized enlarged lymph nodes; Z20.822 Contact with and (suspected) exposure to COVID-19; E66.9 Obesity, unspecified; F41.9 Anxiety disorder, unspecified; N40.1 Benign prostatic hyperplasia with lower urinary tract symptoms; R33.8 Other retention of urine; R73.9 Hyperglycemia, unspecified; E87.5 Hyperkalemia; K59.00 Constipation, unspecified; F41.0 Panic disorder [episodic paroxysmal anxiety]; G47.00 Insomnia, unspecified; I95.9 Hypotension, unspecified; Z68.31 Body mass index [BMI] 31.0-31.9, adult; Z79.82 Long term (current) use of aspirin; Z91.14 Patient's other noncompliance with medication regimen; Z79.01 Long term (current) use of anticoagulants; Z95.5 Presence of coronary angioplasty implant and graft; Z79.899 Other long term (current) drug therapy
CPT/HCPCS: 0241U; 36415; 36600; 51702; 51798; 71045; 74018; 80048; 80053; 80162; 80305; 80307; 81001; 82803; 83605; 83735; 83880; 84439; 84443; 84484; 85025; 85027; 85379; 86140; 87070; 87205; 93005; 94010; 94640; 94660; 94667; 94762; 96361; 96374; 96375; 97110; 97116; 97161; 97165; 97530; 99285; A9270-GY; J0282; J0360; J0456; J1160; J1940; J2270; J2930; J3475; J3490; J7030; J7050; J7120; J7512; J7620-GY

== ENCOUNTER 2022-01-06 10:09 | Emergency (ER) | payer MEDICARE, MEDICAID ==
[2022-01-06] MEDS ORDERED: Metoprolol Tartrate 5 MG/5 ML SDV IVPUSH ONE ×2 (10:19→13:09)
[2022-01-06] MEDS ORDERED: Metoprolol Tartrate 5 MG/5 ML SDV ONE ×2 (10:20→13:11)
[2022-01-06] MEDS ORDERED: Amiodarone 150 MG/3 ML SDV IVPUSH ONE (10:22)
[2022-01-06] MEDS ORDERED: Albuterol/Ipratropium 3.0-0.5 MG/3 ML Neb Soln NEB ONE (10:37)
[2022-01-06] MEDS ORDERED: Sodium Chloride 0.9% 1,000 ML IV ONE (10:56)
[2022-01-06 11:00] LABS: ANION GAP 25.3 mEq/L (7-13); CHLORIDE,CL 91 mmol/L (98-107); SODIUM,NA 131 mmol/L (136-145)
[2022-01-06 11:02] LABS: PTT,PARTIAL THROMBOPLSTIN TIME 26.5 SEC (22.0-34.0)
[2022-01-06 11:08] LABS: ESTIMATED GFR 23 mL/min (>=60)
[2022-01-06] MEDS ORDERED: Furosemide 40 MG/4 ML VIAL IVPUSH ONE (11:50)
[2022-01-06] MEDS ORDERED: Phenylephrine 1% 10 MG/ML SDV ONE (13:12)
[2022-01-06 13:15] VITALS: BP 90/71; PULSE 180
[2022-01-06] MEDS: Diltiazem 25 MG/5 ML SDV ONE ×2 (13:29→18:56)
[2022-01-06 14:33] LABS: O2 DELIVERY DEVICE NASAL CANNULA
[2022-01-06 14:35] LABS: BASE EXCESS ARTERIAL -10 mmol/L ((-2)-(+3)); O2 SATURATION ARTERIAL 73 % (95-100); PCO2 ARTERIAL 33 mmHg (35-45); PO2 ARTERIAL 42 mmHg (70-100)
[2022-01-06 14:36] LABS: ALLEN TEST PERFORMED
[2022-01-06] MEDS ORDERED: Diltiazem 25 MG/5 ML SDV IVPUSH ONE (18:53)
== END 2022-01-06 15:31 ==
LOC: DL.ED 10:09
DX: J44.9 Chronic obstructive pulmonary disease, unspecified (principal); N17.9 Acute kidney failure, unspecified; R00.0 Tachycardia, unspecified; R57.0 Cardiogenic shock; R79.89 Other specified abnormal findings of blood chemistry; I48.91 Unspecified atrial fibrillation; I25.10 Atherosclerotic heart disease of native coronary artery without angina pectoris; E78.00 Pure hypercholesterolemia, unspecified; I11.9 Hypertensive heart disease without heart failure; I25.2 Old myocardial infarction; E03.9 Hypothyroidism, unspecified; E66.9 Obesity, unspecified; Z79.82 Long term (current) use of aspirin; Z79.899 Other long term (current) drug therapy; Z95.5 Presence of coronary angioplasty implant and graft; Z20.822 Contact with and (suspected) exposure to COVID-19; Z79.01 Long term (current) use of anticoagulants; Z68.35 Body mass index [BMI] 35.0-35.9, adult
CPT/HCPCS: 36415; 36600; 51702; 71045; 74176; 80053; 82803; 83605; 83735; 83880; 84484; 85025; 85610; 85730; 86140; 93005; 94640; 96365; 96366; 96368; 96375; 96376; 99285; J0282; J1940; J2370; J3490; J7030; U0002